=== PATIENT | female | born 1990 | race Hispanic/Latino ===

== ENCOUNTER 2017-07-31 14:41 | Emergency (ER) | payer BC ==
--- NOTE | 2017-07-31 15:00 | EDM.PDOC ---
ED HPI GENERAL MEDICAL PROBLEM - General Chief Complaint: Abdominal Pain Stated Complaint: STOMACH PAINS Time Seen by Provider: 07/31/17 14:57 Source of Information: Reports: Patient History Limitations: Reports: No Limitations - History of Present Illness INITIAL COMMENTS - FREE TEXT/NARRATIVE: HISTORY AND PHYSICAL: []27-year-old obese female presenting with left-sided upper abdominal pain that extends and waves laterally across to the right side History of Present Illness: []Pain awakened patient at 6:00 this morning Patient had bowel movement that was loose at noon One episode of emesis Review of Systems: As per history of present illness and below otherwise all systems reviewed and negative. Past medical history: As per history of present illness and as reviewed below otherwise noncontributory. Surgical history: As per history of present illness and as reviewed below otherwise noncontributory. Social history: No reported history of drug or alcohol abuse. Family history: As per history of present illness and as reviewed below otherwise noncontributory. Physical exam: Alert and oriented female who is good affect skin is warm and dry answering questions appropriately in full sentences without any shortness of breath HEENT: Atraumatic, normocehpalic, pupils reactive, negative for conjunctival pallor or scleral icterus, mucous membranes moist, throat clear, neck supple, nontender, trachea midline. Lungs: Clear to auscultation, breath sounds equal bilaterally, chest non tender. Heart: S1S2, regular, negative for clicks, rubs, or JVD. Abdomen: Soft, nondistended, nontender. No guarding no rebound. No pain at the time of examination "the way of just finished" Negative for masses or hepatossplenmegaly. Negative for costovertebral tenderness. Pelvis: Stable nontender. Genitourinary: Deferred. Rectal: Deferred Extremities: Atraumatic, negative for cords or calf pain. Neurovascular unremarkable. Neuro: Awake, alert, oriented. Cranial nerves II through XII unremarkable. Cerebellum unremarkable. Motor and sensory unremarkable throughout. Exam nonfocal. Diagnostics: [CBC CMP amylase lipase urine culture UA Therapeutics: [Toradol 30 mg IV] Impression: [Mesenteric adenitis] Plan: []Discharged home Ibuprofen as discussed If worsens over the weekend return to ER Follow-up with your primary care next week Definitive disposition and diagnosis as appropriate pending reevaluation and review of above. Onset: Today, Sudden Duration: Hour(s): Left Abdominal Pain Score (Numeric/FACES): 10 - Related Data Allergies Allergy/AdvReac Type Severity Reaction Status Date / Time No Known Allergies Allergy Verified 07/31/17 14:57 Home Meds: Home Meds Levonorgestrel-Ethin Estradiol [Clotilde-28 Tablet] 1 tab PO DAILY 07/31/17 [ History] ED ROS GENERAL - Review of Systems Review Of Systems: ROS reveals no pertinent complaints other than HPI. ED EXAM, GI/ABD - Physical Exam Exam: See Below (See dictation) Course - Vital Signs Last Recorded V/S: Last Vital Signs Temp 36.7 C 07/31/17 17:49 Pulse 90 07/31/17 17:49 Resp 20 07/31/17 17:49 BP 139/88 07/31/17 17:49 Pulse Ox 98 07/31/17 17:49 - Orders/Labs/Meds Orders: Active Orders 24 hr Category Date Time Status Abdomen Pelvis w Cont [CT] Stat Exams 07/31/17 16:41 Taken Chest 1V Frontal [CR] Stat Exams 07/31/17 15:00 Taken CULTURE URINE [RM] Stat Lab 07/31/17 15:07 Received Ketorolac [Toradol] Med 07/31/17 18:27 Once 30 mg IVPUSH ONETIME ONE Labs: Laboratory Tests 07/31/17 07/31/17 07/31/17 Range/Units 15:07 15:07 15:07 WBC (4.0-11.0) K/uL RBC (4.30-5.90) M/uL Hgb (12.0-16.0) g/dL Hct (36.0-46.0) % MCV (80.0-98.0) fL MCH (27.0-32.0) pg MCHC (31.0-37.0) g/dL RDW Std Deviation (28.0-62.0) fl RDW Coeff of Max (11.0-15.0) % Plt Count (150-400) K/uL MPV (7.40-12.00) fL Add Manual Diff Neutrophils % (Manual) (48.0-80.0) % Band Neutrophils % % Lymphocytes % (Manual) (16.0-40.0) % Atypical Lymphs % Monocytes % (Manual) (0.0-15.0) % Nucleated RBC % /100WBC Absolute Seg Neuts (1.4-5.7) Band Neutrophils # Lymphocytes # (Manual) (0.6-2.4) Monocytes # (Manual) (0.0-0.8) Nucleated RBCs # K/uL Sodium (136-146) mmol/L Potassium (3.5-5.1) mmol/L Chloride (98-110) mmol/L Carbon Dioxide (21-31) mmol/L BUN (6.0-23.0) mg/dL Creatinine (0.6-1.5) mg/dL Est Cr Clr Drug Dosing mL/min Estimated GFR (MDRD) ml/min Glucose (60-110) mg/dL Calcium (8.8-10.8) mg/dL Total Bilirubin (0.1-1.5) mg/dL AST (5-40) IU/L ALT (8-54) IU/L Alkaline Phosphatase (40-150) Total Protein (6.0-8.0) g/dL Albumin (3.5-5.0) g/dL Globulin (2.0-3.5) g/dL Albumin/Globulin Ratio (1.3-2.8) Amylase (10-90) U/L Lipase (7-80) U/L Urine Color YELLOW Urine Appearance CLEAR Urine pH 7.0 (5.0-8.0) Ur Specific Volcano 1.020 (1.001-1.035) Urine Protein 100 (NEGATIVE) mg/dL Urine Glucose (UA) NEGATIVE (NEGATIVE) mg/dL Urine Ketones NEGATIVE (NEGATIVE) mg/dL Urine Occult Blood NEGATIVE (NEGATIVE) Urine Nitrite NEGATIVE (NEGATIVE) Urine Bilirubin NEGATIVE (NEGATIVE) Urine Urobilinogen 4.0 H (<2.0) EU/dL Ur Leukocyte Esterase NEGATIVE (NEGATIVE) Urine RBC 0-2 (0-2/HPF) Urine WBC 0-1 (0-5/HPF) Ur Epithelial Cells RARE (NONE-FEW) Urine Bacteria RARE (NEGATIVE) Urine HCG, Qual NEGATIVE (NEGATIVE) Urine Opiates Screen NEGATIVE (NEGATIVE) Ur Oxycodone Screen NEGATIVE (NEGATIVE) Urine Methadone Screen NEGATIVE (NEGATIVE) Ur Barbiturates Screen NEGATIVE (NEGATIVE) Ur Phencyclidine Scrn NEGATIVE (NEGATIVE) Ur Amphetamine Screen NEGATIVE (NEGATIVE) U Methamphetamines Scrn NEGATIVE (NEGATIVE) U Benzodiazepines Scrn NEGATIVE (NEGATIVE) U Cocaine Metab Screen NEGATIVE (NEGATIVE) U Marijuana (THC) Screen NEGATIVE (NEGATIVE) 07/31/17 07/31/17 Range/Units 15:09 15:09 WBC 17.81 H (4.0-11.0) K/uL RBC 6.96 H (4.30-5.90) M/uL Hgb 14.5 (12.0-16.0) g/dL Hct 44.6 (36.0-46.0) % MCV 64.1 L (80.0-98.0) fL MCH 20.8 L (27.0-32.0) pg MCHC 32.5 (31.0-37.0) g/dL RDW Std Deviation 35.3 (28.0-62.0) fl RDW Coeff of Max 17 H (11.0-15.0) % Plt Count 334 (150-400) K/uL MPV 9.80 (7.40-12.00) fL Add Manual Diff YES Neutrophils % (Manual) 73 (48.0-80.0) % Band Neutrophils % 3 % Lymphocytes % (Manual) 17 (16.0-40.0) % Atypical Lymphs % Not Reportable Monocytes % (Manual) 2 (0.0-15.0) % Nucleated RBC % 0.0 /100WBC Absolute Seg Neuts 13.0 H (1.4-5.7) Band Neutrophils # 0.5 Lymphocytes # (Manual) 3.0 H (0.6-2.4) Monocytes # (Manual) 0.4 (0.0-0.8) Nucleated RBCs # 0 K/uL Sodium 134 L (136-146) mmol/L Potassium 4.4 (3.5-5.1) mmol/L Chloride 101 (98-110) mmol/L Carbon Dioxide 24 (21-31) mmol/L BUN 10 (6.0-23.0) mg/dL Creatinine 0.7 (0.6-1.5) mg/dL Est Cr Clr Drug Dosing 90.29 mL/min Estimated GFR (MDRD) > 60.0 ml/min Glucose 154 H (60-110) mg/dL Calcium 9.2 (8.8-10.8) mg/dL Total Bilirubin 0.5 (0.1-1.5) mg/dL AST 23 (5-40) IU/L ALT 23 (8-54) IU/L Alkaline Phosphatase 93 (40-150) Total Protein 8.8 H (6.0-8.0) g/dL Albumin 3.9 (3.5-5.0) g/dL Globulin 4.9 H (2.0-3.5) g/dL Albumin/Globulin Ratio 0.8 L (1.3-2.8) Amylase 66 (10-90) U/L Lipase 20 (7-80) U/L Urine Color Urine Appearance Urine pH (5.0-8.0) Ur Specific Volcano (1.001-1.035) Urine Protein (NEGATIVE) mg/dL Urine Glucose (UA) (NEGATIVE) mg/dL Urine Ketones (NEGATIVE) mg/dL Urine Occult Blood (NEGATIVE) Urine Nitrite (NEGATIVE) Urine Bilirubin (NEGATIVE) Urine Urobilinogen (<2.0) EU/dL Ur Leukocyte Esterase (NEGATIVE) Urine RBC (0-2/HPF) Urine WBC (0-5/HPF) Ur Epithelial Cells (NONE-FEW) Urine Bacteria (NEGATIVE) Urine HCG, Qual (NEGATIVE) Urine Opiates Screen (NEGATIVE) Ur Oxycodone Screen (NEGATIVE) Urine Methadone Screen (NEGATIVE) Ur Barbiturates Screen (NEGATIVE) Ur Phencyclidine Scrn (NEGATIVE) Ur Amphetamine Screen (NEGATIVE) U Methamphetamines Scrn (NEGATIVE) U Benzodiazepines Scrn (NEGATIVE) U Cocaine Metab Screen (NEGATIVE) U Marijuana (THC) Screen (NEGATIVE) Meds: Medications Discontinued Medications Generic Name Dose Route Start Last Admin Trade Name Lamonte PRN Reason Stop Dose Admin Iopamidol 100 ml 07/31/17 17:04 07/31/17 17:05 Isovue Multipack-370 (76%) IVPUSH 07/31/17 17:05 100 ml ONETIME STA Administration Departure - Departure Time of Disposition: 18:28 Disposition: Home, Self-Care 01 Condition: Good Clinical Impression: Mesenteric adenitis Abdominal pain Qualifiers: Abdominal location: generalized Qualified Code(s): R10.84 - Generalized abdominal pain - Discharge Information Instructions: Abdominal Pain, Adult, [id number] Referrals: PCP,None [Primary Care Provider] - Forms: ED Department Discharge Additional Instructions: The following information is given to patients seen in the emergency department who are being discharged to home. This information is to outline your options for follow-up care. We provide all patients seen in our emergency department with a follow-up referral. The need for follow-up, as well as the timing and circumstances, are variable depending upon the specifics of your emergency department visit. If you don't have a primary care physician on staff, we will provide you with a referral. We always advise you to contact your personal physician following an emergency department visit to inform them of the circumstance of the visit and for follow-up with them and/or the need for any referrals to a consulting specialist. The emergency department will also refer you to a specialist when appropriate. This referral assures that you have the opportunity for followup care with a specialist. All of these measure are taken in an effort to provide you with optimal care, which includes your followup. Under all circumstances we always encourage you to contact your private physician who remains a resource for coordinating your care. When calling for followup care, please make the office aware that this follow-up is from your recent emergency room visit. If for any reason you are refused follow-up, please contact the [facility] emergency department at and asked to speak to the emergency department charge nurse. Ibuprofen as discussed for discomfort Heat pack to abdomen as needed Return to the emergency department charge if symptoms were to worsen over the weekend Follow-up with your primary care provider next week - My Orders Last 24 Hours: My Active Orders 07/31/17 15:00 Chest 1V Frontal [CR] Stat 07/31/17 15:07 CULTURE URINE [RM] Stat 07/31/17 16:41 Abdomen Pelvis w Cont [CT] Stat 07/31/17 18:27 Ketorolac [Toradol] 30 mg IVPUSH ONETIME ONE - Assessment/Plan Last 24 Hours: My Active Orders 07/31/17 15:00 Chest 1V Frontal [CR] Stat 07/31/17 15:07 CULTURE URINE [RM] Stat 07/31/17 16:41 Abdomen Pelvis w Cont [CT] Stat 07/31/17 18:27 Ketorolac [Toradol] 30 mg IVPUSH ONETIME ONE
[2017-07-31 15:40] LABS: CHLORIDE,CL 101 mmol/L (98-110); SODIUM,NA 134 mmol/L (136-146)
[2017-07-31] MEDS ORDERED: Iopamidol 755 MG/ML 500 ML Multipack Bottle IVPUSH STA (17:04)
[2017-07-31] MEDS ORDERED: Ketorolac 30 MG/ML SDV IVPUSH ONE (18:27)
--- NOTE | 2017-08-03 14:07 | CR ---
EXAM DATE: 07/31/17 PATIENT'S AGE: 27 Patient: RAFAEL ALFORD Facility: [place], [place] Site . Site : 1990 Study: XRay Chest [id number] 4:59:41 PM Ordering Physician: Doctor Posey Final Report: INDICATION: pain/sob TECHNIQUE: Chest 1 view. COMPARISON: None. FINDINGS: Cardiovascular and mediastinum: Heart size and vasculature are normal in caliber and appearance. Mediastinum is within normal limits. Lungs and pleural space: Lungs are clear. No sign of infiltrate or mass. No sign of pleural effusion. No pneumothorax. Bones and soft tissues: No significant findings. IMPRESSION: Unremarkable chest. Dictated by: Brian Bobby MD @ 07/31/2017 17:47:02 (Electronic Signature) Report Signed by Proxy. ROBERT
--- NOTE | 2017-08-03 14:13 | CT ---
EXAM DATE: 07/31/17 PATIENT'S AGE: 27 Patient: RAFAEL ALFORD Facility: [place], [place] Site . Site : 1990 Study: CT Abdomen/Pelvis [id number] 5:10:21 PM Ordering Physician: Doctor Posey Final Report: INDICATION: ABD PAIN THIS TECHNIQUE: CT abdomen and pelvis acquired with IV contrast. COMPARISON: None FINDINGS: Lower chest: 4 mm nonspecific noncalcified pulmonary nodule within the right lower lobe. Liver: Unremarkable. Spleen: Unremarkable. Pancreas: Unremarkable. Gallbladder and bile ducts: Unremarkable. Kidneys: Subcentimeter focus low attenuated structure within the inferior pole of the left kidney which is too small to accurately characterize by CT. Adrenal glands: Unremarkable. GI tract: Unremarkable. Appendix is normal. Vascular structures: Negative. No sign of aneurysm. Lymph nodes: Prominent nonspecific mesenteric lymph nodes Miscellaneous: Unremarkable. No free air or significant free fluid. Pelvic Organs: Unremarkable. Bones: Unremarkable for age. IMPRESSION: 1. Nonspecific prominent mesenteric lymph nodes. Normal appendix. Findings are nonspecific, but can be seen with mesenteric adenitis. 2. 4 mm nonspecific noncalcified primary nodule within the right lower lobe. Recommend comparison with any prior cross-sectional imaging of the chest to evaluate for stability/chronicity. Dictated by Clint Waller MD @ 07/31/2017 6:16:42 PM Dictated by: Clint Waller MD @ 07/31/2017 18:16:53 (Electronic Signature) Report Signed by Proxy. [facility]ANEL[facility]
== END 2017-07-31 18:37 | disposition home or self-care (01) ==
LOC: MW.ED 14:41 → EDBD 14:41 → MERGE 14:41 → MW.ED 18:37
DX: I88.0 Nonspecific mesenteric lymphadenitis (principal); Z79.899 Other long term (current) drug therapy
CPT/HCPCS: 36415; 71010; 74177; 80053; 80305; 81001; 81025; 82150; 83690; 85025; 87086; 96372; 99284; J1885; Q9967

== ENCOUNTER 2020-01-25 07:39 | Inpatient (IN) | payer BC ==
[~2020-01-25 07:39] MED LIST: Glycopyrrolate 0.2 MG/ML SDV ONE; Lactated Ringers 1,000 ML IV SCH; Lidocaine 2% 5 ML SDV ONE; Midazolam 1 MG/ML 2 ML SDV ONE; Ondansetron 4 MG/2 ML SDV ONE; Propofol 200 MG/20 ML SDV ONE; Rocuronium Bromide 50 MG/5 ML Syringe ONE; Sodium Chloride 0.9% 10 ML SDV IV PRN; Sodium Chloride 0.9% 10 ML Syringe FLUSH PRN; Sodium Chloride 0.9% 2.5 ML Syringe FLUSH PRN; ceFAZolin 2 GM in Premix Bag 1 BAG IV ONE; fentaNYL 250 MCG/5 ML SDV ONE
[2020-01-25] MEDS ORDERED: Bupivacaine 0.5% 30 ML SDV ONE ×2 (08:16→12:40)
--- NOTE | 2020-01-25 08:58 | PCM.PREANE ---
Preanesthetic Assessment - Anesthesia/Transfusion/Family Hx Anesthesia History: No Prior Anesthesia Family History of Anesthesia Reaction: No Transfusion History: Unknown Intubation History: Unknown - Review of Systems General: No Symptoms Pulmonary: No Symptoms Cardiovascular: No Symptoms Gastrointestinal: Abdominal Pain Neurological: No Symptoms Other: Reports: None - Physical Assessment Height: 5 ft 1 in Weight: 112.491 kg ASA Class: 2 Mental Status: Alert & Oriented x3 Airway Class: Mallampati = 1 Dentition: Reports: Implants (x1 upper front) Thyro-Mental Finger Breadths: 3 Mouth Opening Finger Breadths: 3 ROM/Head Extension: Full Lungs: Clear to Auscultation, Normal Respiratory Effort Cardiovascular: Regular Rate, Regular Rhythm - Allergies Allergies/Adverse Reactions: Allergies Allergy/AdvReac Type Severity Reaction Status Date / Time No Known Allergies Allergy Verified 01/22/20 10:01 - Blood Blood Available: No - Anesthesia Plan Pre-Op Medication Ordered: None - Acknowledgements Anesthesia Type Planned: General Anesthesia Pt an Appropriate Candidate for the Planned Anesthesia: Yes Alternatives and Risks of Anesthesia Discussed w Pt/Guardian: Yes Pt/Guardian Understands and Agrees with Anesthesia Plan: Yes PreAnesthesia Questionnaire HEENT History: Reports: Other (See Below) Other HEENT History: wears contacts/glasses Cardiovascular History: Reports: None Respiratory History: Reports: Asthma (mild/moderate) Gastrointestinal History: Reports: Cholelithiasis, Hepatitis, Other (See Below) Other Gastrointestinal History: occasional heartburn, hx hepatitis C-has been treated Genitourinary History: Reports: None [employer] History: Reports: Polycystic Ovaries, (13 weeks at present time, heart tones present this morning) Musculoskeletal History: Reports: None Neurological History: Reports: None Psychiatric History: Reports: None Endocrine/Metabolic History: Reports: Diabetes, Gestational, Obesity/BMI 30+ (BMI 46.9) Hematologic History: Reports: Other (See Below) Other Hematologic History: thalassemia trait Immunologic History: Reports: None Oncologic (Cancer) History: Reports: None Dermatologic History: Reports: None - Past Surgical History Head Surgeries/Procedures: Reports: None HEENT Surgical History: Reports: Oral Surgery Other HEENT Surgeries/Procedures: dental implant x1 upper front Cardiovascular Surgical History: Reports: None Respiratory Surgical History: Reports: None GI Surgical History: Reports: None Female Surgical History: Reports: None Endocrine Surgical History: Reports: None Neurological Surgical History: Reports: None Musculoskeletal Surgical History: Reports: None Oncologic Surgical History: Reports: None Dermatological Surgical History: Reports: None - SUBSTANCE USE Smoking Status *Q: Never Smoker - HOME MEDS Home Medications: Home Meds Albuterol [Proair HFA] 2 puff INH ASDIRECTED PRN 01/22/20 [History] Budesonide [Pulmicort Flexhaler] 1 puff INH BID 01/22/20 [History] Insulin NPH/Insulin Reg,Human [Novolin 70-30] 1 injection SUBCUT BID 01/22/20 [History] Lispro 10 mg PO BID 01/22/20 [History] Pnv No.95/Ferrous Fum/Folic AC [ Vitamin Tablet] 1 tab PO DAILY 01/22/20 [History] - CURRENT (IN HOUSE) MEDS Current Meds: Current Medications Lactated Ringer's (Ringers, Lactated) 1,000 mls @ 125 mls/hr IV ASDIRECTED DAISY Last Admin: 01/25/20 08:52 Dose: 125 mls/hr Documented by: Sodium Chloride (Saline Flush) 10 ml FLUSH ASDIRECTED PRN PRN Reason: Keep Vein Open Sodium Chloride (Saline Flush) 2.5 ml FLUSH ASDIRECTED PRN PRN Reason: Keep Vein Open Sodium Chloride (Normal Saline) 10 ml IV ASDIRECTED PRN PRN Reason: IV Use Discontinued Medications Bupivacaine HCl (Marcaine 0.5%) Confirm Administered Dose 30 ml .ROUTE .STK-MED ONE Stop: 01/25/20 08:17 Fentanyl (Sublimaze) Confirm Administered Dose 250 mcg .ROUTE .STK-MED ONE Stop: 01/25/20 07:16 Glycopyrrolate (Robinul) Confirm Administered Dose 0.4 mg .ROUTE .STK-MED ONE Stop: 01/25/20 07:16 Cefazolin Sodium/Dextrose 2 gm (/ Premix) 50 mls @ 100 mls/hr IV ONETIME ONE Stop: 01/22/20 11:13 Lidocaine (Xylocaine-Mpf 2%) Confirm Administered Dose 5 ml .ROUTE .STK-MED ONE Stop: 01/25/20 07:16 Midazolam HCl (Versed 1 Mg/Ml) Confirm Administered Dose 2 mg .ROUTE .STK-MED ONE Stop: 01/25/20 07:16 Ondansetron HCl (Zofran) Confirm Administered Dose 4 mg .ROUTE .STK-MED ONE Stop: 01/25/20 07:16 Propofol (Diprivan 20 Ml) Confirm Administered Dose 200 mg .ROUTE .STK-MED ONE Stop: 01/25/20 07:16 Rocuronium Livingston (Rocuronium Livingston) Confirm Administered Dose 50 mg .ROUTE .STK-MED ONE Stop: 01/25/20 07:16
[2020-01-25] MEDS ORDERED: Succinylcholine/Sod PF 100 MG/5 ML SYRINGE IV ONE (09:07)
[2020-01-25] MEDS ORDERED: Acetaminophen/oxyCODONE 325-5 MG Tab PO PRN (09:11)
[2020-01-25] MEDS ORDERED: Ondansetron 4 MG Tab PO PRN (09:11)
[2020-01-25] MEDS ORDERED: Sodium Chloride 0.9% 20 ML ONE (09:26)
[2020-01-25] MEDS ORDERED: ceFAZolin 1 GM Vial ONE ×2 (09:26→12:39)
[2020-01-25] MEDS ORDERED: fentaNYL 100 MCG/2 ML SDV ONE ×4 (09:55→13:09)
[2020-01-25] MEDS ORDERED: Rocuronium Bromide 50 MG/5 ML Syringe ONE (10:20)
[2020-01-25] MEDS ORDERED: HYDROmorphone 2 MG/ML Syringe ONE (10:42)
[2020-01-25] MEDS ORDERED: Labetalol 100 MG/20 ML MDV ONE (13:27)
[2020-01-25] MEDS ORDERED: Albuterol 0.083% 2.5 MG/3 ML Neb Soln NEB PRN (13:30)
[2020-01-25] MEDS ORDERED: Atropine 0.1 MG/ML 10 ML Syringe IVPUSH PRN ×2 (13:30)
[2020-01-25] MEDS ORDERED: EPINEPHrine 1:10,000 1 MG/10 ML Syringe IVPUSH PRN (13:30)
[2020-01-25] MEDS ORDERED: Naloxone 0.4 MG/ML Syringe IVPUSH PRN ×2 (13:30→14:00)
[2020-01-25] MEDS ORDERED: 50% Dextrose in Water 50 ML Syringe IVPUSH PRN (13:30)
[2020-01-25] MEDS ORDERED: diphenhydrAMINE 50 MG/ML SDV IVPUSH PRN ×2 (13:45→14:00)
[2020-01-25] MEDS ORDERED: Acetaminophen 325 MG Tab PO PRN (13:45)
--- NOTE | 2020-01-25 13:58 | PCM.OPNOTE ---
- General Post-Op/Procedure Note Date of Surgery/Procedure: 01/25/20 Operative Procedure(s): Laparoscopic converted to open cholecystectomy Findings: Severely inflamed gallbladder with extremely large stone impacted in the proximal half of the gallbladder Pre Op Diagnosis: Symptomatic cholelithiasis Post-Op Diagnosis: Acute cholecystitis Anesthesia Technique: General ET Tube Primary Surgeon: Jannet Shirley Secondary Surgeon: Inderjit Shukla Pathology: gallbladder Fluid Replacement, Intraop: 3,800 Output, Urine Amount: 410 EBL in mLs: 450 Surgical Drain/Tube Type: Arcenio Drain Condition: Good
[2020-01-25] MEDS ORDERED: Ondansetron 4 MG/2 ML SDV IVPUSH PRN (14:00)
[2020-01-25] MEDS ORDERED: diphenhydrAMINE 25 MG Cap PO PRN (14:00)
[2020-01-25] MEDS: fentaNYL 100 MCG/2 ML SDV IVPUSH PRN ×2 (14:30→14:37)
[2020-01-25 14:31] LABS: BLOOD UREA NITROGEN,BUN 6 mg/dL (7.0-18.0); CARBON DIOXIDE,CO2 23.2 mmol/L (21.0-32.0); CHLORIDE,CL 103 mmol/L (98-107); GLUCOSE RANDOM 115 mg/dL (74-106); POTASSIUM,K 3.9 mmol/L (3.5-5.1); SODIUM,NA 136 mmol/L (136-145)
[2020-01-25] MEDS: cefOXitin 2 GM in Premix Bag 1 BAG IV SCH ×3 (15:51→22:11)
[2020-01-25] MEDS: Morphine PF 30 MG/30 ML PCA Vial IV SCH (15:52)
[2020-01-25] MEDS ORDERED: Magnesium Sulfate/Water 4 GM in Premix Bag 1 BAG IV ONE ×2 (15:52→16:00)
--- NOTE | 2020-01-25 15:57 | PCM.POSTAN ---
POST ANESTHESIA ASSESSMENT - MENTAL STATUS Mental Status: Alert, Oriented - VITAL SIGNS Vital Signs: Last Vital Signs Temp 36.7 C 01/25/20 13:43 Pulse 110 H 01/25/20 15:00 Resp 18 01/25/20 15:00 BP 132/87 01/25/20 15:00 Pulse Ox 97 01/25/20 15:00 - RESPIRATORY Respiratory Status: Respiratory Rate WNL, Airway Patent, O2 Saturation Stable - CARDIOVASCULAR CV Status: Pulse Rate WNL, Blood Pressure Stable - GASTROINTESTINAL GI Status: No Symptoms - PAIN Pain Score: 4 - POST OP HYDRATION Hydration Status: Adequate & Stable - OBSERVATIONS Free Text/Narrative:: No anesthesia problems
--- NOTE | 2020-01-25 17:45 | PCM.SURGPN ---
- General Info Date of Service: 01/25/20 Date of Surgery/Procedure: 01/25/20 POD#: 0 Functional Status: Reports: Pain Controlled, Other (Pain well controlled. patient is tachycardic and was preoperative. HR is only about 10 BPM higher than pre-op. She denies nausea. UOP adequate. Baby with HR near the 160s and moving around on US. ) - Review of Systems General: Reports: No Symptoms HEENT: Reports: No Symptoms Pulmonary: Reports: No Symptoms Cardiovascular: Reports: No Symptoms Gastrointestinal: Reports: No Symptoms Genitourinary: Reports: No Symptoms Musculoskeletal: Reports: No Symptoms Skin: Reports: No Symptoms - Patient Data Vitals - Most Recent: Last Vital Signs Temp 36.5 C 01/25/20 15:15 Pulse 119 H 01/25/20 15:15 Resp 18 01/25/20 15:15 BP 126/88 01/25/20 15:15 Pulse Ox 98 01/25/20 15:15 Weight - Most Recent: 112.491 kg I&O - Last 24 Hours: Intake & Output 01/25/20 01/25/20 01/25/20 06:59 14:59 22:59 Intake Total 8200 Output Total 1095 Balance 7105 Lab Results Last 24 Hrs: Laboratory Results - last 24 hr 01/25/20 01/25/20 01/25/20 Range/Units 11:12 13:50 14:00 WBC (4.0-11.0) K/uL RBC (4.30-5.90) M/uL Hgb (12.0-16.0) g/dL Hct (36.0-46.0) % MCV (80.0-98.0) fL MCH (27.0-32.0) pg MCHC (31.0-37.0) g/dL RDW Std Deviation (28.0-62.0) fl RDW Coeff of Max (11.0-15.0) % Plt Count (150-400) K/uL MPV (7.40-12.00) fL Neut % (Auto) (48.0-80.0) % Lymph % (Auto) (16.0-40.0) % [place] % (Auto) (0.0-15.0) % Eos % (Auto) (0.0-7.0) % Baso % (Auto) (0.0-1.5) % Neut # (Auto) (1.4-5.7) K/uL Lymph # (Auto) (0.6-2.4) K/uL [place] # (Auto) (0.0-0.8) K/uL Eos # (Auto) (0.0-0.7) K/uL Baso # (Auto) (0.0-0.1) K/uL Nucleated RBC % /100WBC Nucleated RBCs # K/uL INR 1.03 APTT (18.6-31.3) SEC Lactate (0.20-2.00) mmol/L Sodium (136-145) mmol/L Potassium (3.5-5.1) mmol/L Chloride (98-107) mmol/L Carbon Dioxide (21.0-32.0) mmol/L BUN (7.0-18.0) mg/dL Creatinine (0.6-1.0) mg/dL Est Cr Clr Drug Dosing mL/min Estimated GFR (MDRD) ml/min Glucose (74-106) mg/dL POC Glucose 103 90 (60-110) mg/dL Calcium (8.5-10.1) mg/dL Magnesium (1.8-2.4) mg/dL Total Bilirubin (0.2-1.0) mg/dL AST (15-37) IU/L ALT (14-63) IU/L Alkaline Phosphatase (46-116) U/L Total Protein (6.4-8.2) g/dL Albumin (3.4-5.0) g/dL Globulin (2.6-4.0) g/dL Albumin/Globulin Ratio (0.9-1.6) 01/25/20 01/25/20 01/25/20 Range/Units 14:00 14:00 14:00 WBC 16.11 H (4.0-11.0) K/uL RBC 6.07 H (4.30-5.90) M/uL Hgb 12.2 (12.0-16.0) g/dL Hct 37.9 (36.0-46.0) % MCV 62.4 L (80.0-98.0) fL MCH 20.1 L (27.0-32.0) pg MCHC 32.2 (31.0-37.0) g/dL RDW Std Deviation 36.3 (28.0-62.0) fl RDW Coeff of Max 16 H (11.0-15.0) % Plt Count 238 (150-400) K/uL MPV 10.00 (7.40-12.00) fL Neut % (Auto) 76.9 (48.0-80.0) % Lymph % (Auto) 15.6 L (16.0-40.0) % [place] % (Auto) 5.4 (0.0-15.0) % Eos % (Auto) 2.0 (0.0-7.0) % Baso % (Auto) 0.1 (0.0-1.5) % Neut # (Auto) 12.4 H (1.4-5.7) K/uL Lymph # (Auto) 2.5 H (0.6-2.4) K/uL [place] # (Auto) 0.9 H (0.0-0.8) K/uL Eos # (Auto) 0.3 (0.0-0.7) K/uL Baso # (Auto) 0.0 (0.0-0.1) K/uL Nucleated RBC % 0.0 /100WBC Nucleated RBCs # 0 K/uL INR APTT (18.6-31.3) SEC Lactate 1.5 (0.20-2.00) mmol/L Sodium 136 (136-145) mmol/L Potassium 3.9 (3.5-5.1) mmol/L Chloride 103 (98-107) mmol/L Carbon Dioxide 23.2 (21.0-32.0) mmol/L BUN 6 L (7.0-18.0) mg/dL Creatinine 0.5 L (0.6-1.0) mg/dL Est Cr Clr Drug Dosing 124.15 mL/min Estimated GFR (MDRD) > 60.0 ml/min Glucose 115 H (74-106) mg/dL POC Glucose (60-110) mg/dL Calcium 7.8 L (8.5-10.1) mg/dL Magnesium 1.3 L (1.8-2.4) mg/dL Total Bilirubin 0.3 (0.2-1.0) mg/dL AST 93 H (15-37) IU/L ALT 82 H (14-63) IU/L Alkaline Phosphatase 73 (46-116) U/L Total Protein 6.6 (6.4-8.2) g/dL Albumin 2.5 L (3.4-5.0) g/dL Globulin 4.1 H (2.6-4.0) g/dL Albumin/Globulin Ratio 0.6 L (0.9-1.6) 01/25/20 01/25/20 Range/Units 14:00 17:07 WBC (4.0-11.0) K/uL RBC (4.30-5.90) M/uL Hgb (12.0-16.0) g/dL Hct (36.0-46.0) % MCV (80.0-98.0) fL MCH (27.0-32.0) pg MCHC (31.0-37.0) g/dL RDW Std Deviation (28.0-62.0) fl RDW Coeff of Max (11.0-15.0) % Plt Count (150-400) K/uL MPV (7.40-12.00) fL Neut % (Auto) (48.0-80.0) % Lymph % (Auto) (16.0-40.0) % [place] % (Auto) (0.0-15.0) % Eos % (Auto) (0.0-7.0) % Baso % (Auto) (0.0-1.5) % Neut # (Auto) (1.4-5.7) K/uL Lymph # (Auto) (0.6-2.4) K/uL [place] # (Auto) (0.0-0.8) K/uL Eos # (Auto) (0.0-0.7) K/uL Baso # (Auto) (0.0-0.1) K/uL Nucleated RBC % /100WBC Nucleated RBCs # K/uL INR APTT 26.4 (18.6-31.3) SEC Lactate (0.20-2.00) mmol/L Sodium (136-145) mmol/L Potassium (3.5-5.1) mmol/L Chloride (98-107) mmol/L Carbon Dioxide (21.0-32.0) mmol/L BUN (7.0-18.0) mg/dL Creatinine (0.6-1.0) mg/dL Est Cr Clr Drug Dosing mL/min Estimated GFR (MDRD) ml/min Glucose (74-106) mg/dL POC Glucose 125 H (60-110) mg/dL Calcium (8.5-10.1) mg/dL Magnesium (1.8-2.4) mg/dL Total Bilirubin (0.2-1.0) mg/dL AST (15-37) IU/L ALT (14-63) IU/L Alkaline Phosphatase (46-116) U/L Total Protein (6.4-8.2) g/dL Albumin (3.4-5.0) g/dL Globulin (2.6-4.0) g/dL Albumin/Globulin Ratio (0.9-1.6) Med Orders - Current: Current Medications Acetaminophen (Tylenol) 650 mg PO Q6H PRN PRN Reason: Pain (mild 1-3) Albuterol (Proventil Neb Soln) 2.5 mg NEB ONETIME PRN PRN Reason: Wheezing Atropine Sulfate (Atropine 0.1 Mg/Ml) 0.5 mg IVPUSH ASDIRECTED PRN PRN Reason: Hypo-perfusion Atropine Sulfate (Atropine 0.1 Mg/Ml) 1 mg IVPUSH ASDIRECTED PRN PRN Reason: Hypo-Perfusion Dextrose/Water (Dextrose 50% In Water) 50 ml IVPUSH ASDIRECTED PRN PRN Reason: Hypoglycemia Diphenhydramine HCl (Benadryl) 25 mg IVPUSH Q4H PRN PRN Reason: Itching Diphenhydramine HCl (Benadryl) 25 mg IVPUSH Q6H PRN PRN Reason: Itching Diphenhydramine HCl (Benadryl) 25 mg PO Q6H PRN PRN Reason: Itching Epinephrine HCl (Epinephrine 1:10,000) 1 mg IVPUSH ASDIRECTED PRN PRN Reason: ACLS Guidelines Fentanyl (Sublimaze) 50 - 100 mcg IVPUSH Q5M PRN PRN Reason: Pain Last Admin: 01/25/20 14:37 Dose: 50 mcg Documented by: Lactated Ringer's (Ringers, Lactated) 1,000 mls @ 125 mls/hr IV ASDIRECTED [facility] Last Admin: 01/25/20 08:52 Dose: 125 mls/hr Documented by: Lactated Ringer's (Ringers, Lactated) 1,000 mls @ 150 mls/hr IV ASDIRECTED [facility] Cefoxitin Sodium 2 gm/ Premix 50 mls @ 100 mls/hr IV Q6H [facility] Last Admin: 01/25/20 15:51 Dose: 100 mls/hr Documented by: Magnesium Sulfate 4 gm/ Premix 100 mls @ 33.333 mls/hr IV ONETIME ONE Stop: 01/25/20 18:59 Insulin Aspart (Novolog) 0 unit SUBCUT ACBREAKFASTANDBED [facility]; Protocol Morphine Sulfate (Morphine Runner Out 30 Mg In 30 Ml) 0 mg IV ASDIRECTED [facility]; Protocol Last Admin: 01/25/20 15:52 Dose: 30 mg Documented by: Naloxone HCl (Narcan) 0.1 mg IVPUSH ASDIRECTED PRN PRN Reason: Respiratory Depression Naloxone HCl (Narcan) 0.04 mg IVPUSH Q3M PRN PRN Reason: Respiratory Depression Ondansetron HCl (Zofran) 4 mg PO Q6H PRN PRN Reason: Nausea/Vomiting Ondansetron HCl (Zofran) 4 mg IVPUSH Q6H PRN PRN Reason: Nausea/Vomiting Sodium Chloride (Saline Flush) 10 ml FLUSH ASDIRECTED PRN PRN Reason: Keep Vein Open Sodium Chloride (Saline Flush) 2.5 ml FLUSH ASDIRECTED PRN PRN Reason: Keep Vein Open Sodium Chloride (Normal Saline) 10 ml IV ASDIRECTED PRN PRN Reason: IV Use Discontinued Medications Bupivacaine HCl (Marcaine 0.5%) Confirm Administered Dose 30 ml .ROUTE .STK-MED ONE Stop: 01/25/20 08:17 Bupivacaine HCl (Marcaine 0.5%) Confirm Administered Dose 120 ml .ROUTE .STK-MED ONE Stop: 01/25/20 12:41 Cefazolin Sodium (Ancef) Confirm Administered Dose 2 gm .ROUTE .STK-MED ONE Stop: 01/25/20 09:27 Cefazolin Sodium (Ancef) Confirm Administered Dose 1 gm .ROUTE .STK-MED ONE Stop: 01/25/20 12:40 Fentanyl (Sublimaze) Confirm Administered Dose 250 mcg .ROUTE .STK-MED ONE Stop: 01/25/20 07:16 Fentanyl (Sublimaze) Confirm Administered Dose 100 mcg .ROUTE .STK-MED ONE Stop: 01/25/20 09:56 Fentanyl (Sublimaze) Confirm Administered Dose 100 mcg .ROUTE .STK-MED ONE Stop: 01/25/20 10:43 Fentanyl (Sublimaze) Confirm Administered Dose 100 mcg .ROUTE .STK-MED ONE Stop: 01/25/20 11:44 Fentanyl (Sublimaze) Confirm Administered Dose 100 mcg .ROUTE .STK-MED ONE Stop: 01/25/20 13:10 Glycopyrrolate (Robinul) Confirm Administered Dose 0.4 mg .ROUTE .STK-MED ONE Stop: 01/25/20 07:16 Hydromorphone HCl (Dilaudid) Confirm Administered Dose 2 mg .ROUTE .STK-MED ONE Stop: 01/25/20 10:43 Cefazolin Sodium/Dextrose 2 gm (/ Premix) 50 mls @ 100 mls/hr IV ONETIME ONE Stop: 01/22/20 11:13 Sodium Chloride (Normal Saline) Confirm Administered Dose 20 mls @ as directed .ROUTE .STK-MED ONE Stop: 01/25/20 09:27 Magnesium Sulfate 4 gm/ Premix 100 mls @ 50 mls/hr IV ONETIME ONE Stop: 01/25/20 17:51 Labetalol HCl (Normodyne) Confirm Administered Dose 100 mg .ROUTE .STK-MED ONE Stop: 01/25/20 13:28 Lidocaine (Xylocaine-Mpf 2%) Confirm Administered Dose 5 ml .ROUTE .STK-MED ONE Stop: 01/25/20 07:16 Midazolam HCl (Versed 1 Mg/Ml) Confirm Administered Dose 2 mg .ROUTE .STK-MED ONE Stop: 01/25/20 07:16 Ondansetron HCl (Zofran) Confirm Administered Dose 4 mg .ROUTE .STK-MED ONE Stop: 01/25/20 07:16 Oxycodone/Acetaminophen (Percocet 325-5 Mg) 2 tab PO Q4H PRN PRN Reason: Pain (severe 7-10) Propofol (Diprivan 20 Ml) Confirm Administered Dose 200 mg .ROUTE .STK-MED ONE Stop: 01/25/20 07:16 Rocuronium [place] (Rocuronium [place]) Confirm Administered Dose 50 mg .ROUTE .STK-MED ONE Stop: 01/25/20 07:16 Rocuronium [place] (Rocuronium [place]) Confirm Administered Dose 50 mg .ROUTE .STK-MED ONE Stop: 01/25/20 10:21 - Exam Wound/Incisions: Dressing Dry and Intact, Other (Drain with serosanguinous drainage. ) General: Alert, Oriented HEENT: Pupils Equal, Pupils Reactive Lungs: Clear to Auscultation, Normal Respiratory Effort Cardiovascular: Regular Rate, Regular Rhythm GI/Abdominal Exam: Soft, Non-Tender, No Distention Extremities: Normal Inspection Skin: Warm, Dry, Intact Neurological: No New Focal Deficit Psy/Mental Status: Alert, Normal Affect, Normal Mood Sepsis Event Note - Focused Exam Vital Signs: Vital Signs Temp Pulse Resp BP Pulse Ox 01/25/20 15:15 36.5 C 119 H 18 126/88 98 01/25/20 15:00 110 H 18 132/87 97 01/25/20 14:53 111 H 22 H 143/80 H 97 01/25/20 14:49 119 H 22 H 136/93 H 97 01/25/20 14:43 119 H 19 137/95 H 97 01/25/20 14:38 113 H 16 140/96 H 95 01/25/20 14:34 109 H 18 140/97 H 96 01/25/20 14:28 107 H 17 141/96 H 95 01/25/20 14:23 111 H 20 143/94 H 95 01/25/20 14:19 114 H 26 H 135/93 H 92 L 01/25/20 14:13 114 H 20 139/93 H 96 01/25/20 14:08 113 H 18 139/98 H 95 01/25/20 14:04 114 H 22 H 144/94 H 95 01/25/20 13:58 114 H 20 142/92 H 96 01/25/20 13:53 116 H 20 145/96 H 96 01/25/20 13:48 117 H 20 157/86 H 97 01/25/20 13:43 36.7 C 122 H 20 147/81 H 97 01/25/20 08:00 36.4 C 114 H 16 150/88 H 98 Date Exam was Performed: 01/25/20 Time Exam was Performed: 17:38 - Problem List & Annotations (1) Acute cholecystitis due to biliary calculus SNOMED Code(s): 99732807205158 Code(s): K80.00 - CALCULUS OF GALLBLADDER W ACUTE CHOLECYST W/O OBSTRUCTION Status: Acute Current Visit: Yes - Problem List Review Problem List Initiated/Reviewed/Updated: Yes - My Orders Last 24 Hours: Active Orders 24 hr Category Date Time Status Patient Status [ADT] Routine ADT 01/25/20 13:45 Active Blood Glucose Check, Bedside [RC] PRN Care 01/25/20 13:30 Active Blood Glucose Check, Bedside [RC] QIDACANDBED Care 01/25/20 13:45 Active Cardiac Monitoring [RC] . DIRECTED Care 01/25/20 13:45 Active Communication Order [RC] PER UNIT ROUTINE Care 01/25/20 14:01 Active Intake and Output [RC] Q4HR Care 01/25/20 13:46 Active Notify Provider Vital Signs [RC] ASDIRECTED Care 01/25/20 13:30 Active Oxygen Therapy [RC] PRN Care 01/25/20 13:30 Active Oxygen Therapy [RC] PRN Care 01/25/20 13:45 Active ROLL TUBE SETTER Record [RC] Q4H Care 01/25/20 14:01 Active Pulse Oximetry [RC] CONTINUOUS Care 01/25/20 13:46 Active RT Aerosol Therapy [RC] ASDIRECTED Care 01/25/20 13:30 Active RT Aerosol Therapy [RC] ASDIRECTED Care 01/25/20 13:30 Active RT Aerosol Therapy [RC] ASDIRECTED Care 01/25/20 13:30 Active RT Incentive Spirometry [RC] Q1HWA Care 01/25/20 13:45 Active Up With Assistance [RC] ASDIRECTED Care 01/25/20 13:45 Active Urinary Catheter Assessment [RC] ASDIRECTED Care 01/25/20 13:45 Active Vital Signs [RC] PER UNIT ROUTINE Care 01/25/20 13:45 Active Vital Signs [RC] PER UNIT ROUTINE Care 01/25/20 14:01 Active Vital Signs [RC] Q5M Care 01/25/20 13:30 Active Wound Care [RC] DAILY Care 01/25/20 13:45 Active Clear Liquid Diet [DIET] Diet 01/26/20 Breakfast Ordered Nothing Per Oral Diet [DIET] Diet 01/25/20 Lunch Active Acetaminophen [Tylenol] Med 01/25/20 13:45 Active 650 mg PO Q6H PRN Albuterol [Proventil Neb Soln] Med 01/25/20 13:30 Active 2.5 mg NEB ONETIME PRN Atropine [Atropine 0.1 MG/ML] Med 01/25/20 13:30 Active 0.5 mg IVPUSH ASDIRECTED PRN Atropine [Atropine 0.1 MG/ML] Med 01/25/20 13:30 Active 1 mg IVPUSH ASDIRECTED PRN Dextrose 50% in Water Med 01/25/20 13:30 Active 50 ml IVPUSH ASDIRECTED PRN EPINEPHrine [EPINEPHrine 1:10,000] Med 01/25/20 13:30 Active 1 mg IVPUSH ASDIRECTED PRN Insulin Aspart [NovoLOG] Med 01/25/20 21:00 Ordered See Protocol SUBCUT ACBREAKFASTANDBED Lactated Ringers [Ringers, Lactated] 1,000 ml Med 01/25/20 13:45 Active IV ASDIRECTED Magnesium Sulfate/Water [Magnesium Sulfate in Water Med 01/25/20 16:00 Active Premix] 4 gm Premix Bag 1 bag IV ONETIME Morphine PF [Morphine ROLL TUBE SETTER 30 MG in 30 ML] Med 01/25/20 14:00 Active See Protocol IV ASDIRECTED Naloxone [Narcan] Med 01/25/20 14:00 Active 0.04 mg IVPUSH Q3M PRN Naloxone [Narcan] Med 01/25/20 13:30 Active 0.1 mg IVPUSH ASDIRECTED PRN Ondansetron [Zofran] Med 01/25/20 14:00 Active 4 mg IVPUSH Q6H PRN Ondansetron [Zofran] Med 01/25/20 09:11 Active 4 mg PO Q6H PRN cefOXitin [Mefoxin in Dextrose,Iso-Osm 2 GM/50 ML] 2 gm Med 01/25/20 13:45 Active Premix Bag 1 bag IV Q6H diphenhydrAMINE [Benadryl] Med 01/25/20 13:45 Active 25 mg IVPUSH Q4H PRN diphenhydrAMINE [Benadryl] Med 01/25/20 14:00 Active 25 mg IVPUSH Q6H PRN diphenhydrAMINE [Benadryl] Med 01/25/20 14:00 Active 25 mg PO Q6H PRN fentaNYL [Sublimaze] Med 01/25/20 13:30 Active 50 - 100 mcg IVPUSH Q5M PRN Abdominal Binder [OM.PC] Per Unit Routine Ot 01/25/20 13:46 Ordered Pulse Oximetry Continuous Monitoring [OM.PC] Routine Oth 01/25/20 14:01 Ordered SCD [Sequential Compression Device] [OM.PC] Routine Oth 01/25/20 13:51 Ordered Medication Orders Acetaminophen (Tylenol) 650 mg PO Q6H PRN PRN Reason: Pain (mild 1-3) Albuterol (Proventil Neb Soln) 2.5 mg NEB ONETIME PRN PRN Reason: Wheezing Atropine Sulfate (Atropine 0.1 Mg/Ml) 0.5 mg IVPUSH ASDIRECTED PRN PRN Reason: Hypo-perfusion Atropine Sulfate (Atropine 0.1 Mg/Ml) 1 mg IVPUSH ASDIRECTED PRN PRN Reason: Hypo-Perfusion Dextrose/Water (Dextrose 50% In Water) 50 ml IVPUSH ASDIRECTED PRN PRN Reason: Hypoglycemia Diphenhydramine HCl (Benadryl) 25 mg IVPUSH Q4H PRN PRN Reason: Itching Diphenhydramine HCl (Benadryl) 25 mg IVPUSH Q6H PRN PRN Reason: Itching Diphenhydramine HCl (Benadryl) 25 mg PO Q6H PRN PRN Reason: Itching Epinephrine HCl (Epinephrine 1:10,000) 1 mg IVPUSH ASDIRECTED PRN PRN Reason: ACLS Guidelines Fentanyl (Sublimaze) 50 - 100 mcg IVPUSH Q5M PRN PRN Reason: Pain Last Admin: 01/25/20 14:37 Dose: 50 mcg Documented by: Admin: 01/25/20 14:30 Dose: 50 mcg Documented by: HANANE Lactated Ringer's (Ringers, Lactated) 1,000 mls @ 125 mls/hr IV ASDIRECTED [facility] Last Admin: 01/25/20 08:52 Dose: 125 mls/hr Documented by: DANIEL Lactated Ringer's (Ringers, Lactated) 1,000 mls @ 150 mls/hr IV ASDIRECTED [facility] Cefoxitin Sodium 2 gm/ Premix 50 mls @ 100 mls/hr IV Q6H [facility] Last Admin: 01/25/20 15:51 Dose: 100 mls/hr Documented by: AMY Magnesium Sulfate 4 gm/ Premix 100 mls @ 33.333 mls/hr IV ONETIME ONE Stop: 01/25/20 18:59 Insulin Aspart (Novolog) 0 unit SUBCUT ACBREAKFASTANDBED [facility]; Protocol Morphine Sulfate (Morphine Runner Out 30 Mg In 30 Ml) 0 mg IV ASDIRECTED [facility]; Protocol Last Admin: 01/25/20 15:52 Dose: 30 mg Documented by: AMY Cosigned by: CARNSAN Naloxone HCl (Narcan) 0.1 mg IVPUSH ASDIRECTED PRN PRN Reason: Respiratory Depression Naloxone HCl (Narcan) 0.04 mg IVPUSH Q3M PRN PRN Reason: Respiratory Depression Ondansetron HCl (Zofran) 4 mg PO Q6H PRN PRN Reason: Nausea/Vomiting Ondansetron HCl (Zofran) 4 mg IVPUSH Q6H PRN PRN Reason: Nausea/Vomiting Sodium Chloride (Saline Flush) 10 ml FLUSH ASDIRECTED PRN PRN Reason: Keep Vein Open Sodium Chloride (Saline Flush) 2.5 ml FLUSH ASDIRECTED PRN PRN Reason: Keep Vein Open Sodium Chloride (Normal Saline) 10 ml IV ASDIRECTED PRN PRN Reason: IV Use - Plan Plan (Free Text/Narrative):: There was no output from NG. Patient was not nauseated. There was no residual so I pulled this out. Patient tolerated clear liquids. Pain: IV MS ROLL TUBE SETTER. Tylenol po prn CV: Tachycardic, but sinus. Will continue to monitor. Pulm: On 2L NC. Sats in high 90s. Watch for signs overnight of sleep apnea. GI: Clear liquids. Renal: Hypomagnesemic. IV mag 4mg ordered. BUN/Cr were normal on labs. UOP clear and adequate. Continue IV LR @125ml/hr ID: IV cefoxin 2gm q 6hr since gallbladder was entered during case. WBC eelvated but likely due to stress from surgery and . Heme: Heme 12. Plts WNL. Drain with no bloody output. Recheck in am Px: SCDs
[2020-01-25] MEDS: Lactated Ringers 1,000 ML IV SCH (20:05)
[2020-01-25] MEDS: Insulin Aspart 100 Units/ML 3 ML Pen SUBCUT SCH (22:08)
[2020-01-26] MEDS: Lactated Ringers 1,000 ML IV SCH ×3 (02:35→16:08)
[2020-01-26] MEDS: Morphine PF 30 MG/30 ML PCA Vial IV SCH (03:46)
[2020-01-26] MEDS: cefOXitin 2 GM in Premix Bag 1 BAG IV SCH ×4 (03:58→21:38)
[2020-01-26] MEDS: Insulin Aspart 100 Units/ML 3 ML Pen SUBCUT SCH ×2 (06:43→22:22)
[2020-01-26 06:44] LABS: BLOOD UREA NITROGEN,BUN 4 mg/dL (7.0-18.0); CARBON DIOXIDE,CO2 27.1 mmol/L (21.0-32.0); CHLORIDE,CL 100 mmol/L (98-107); GLUCOSE RANDOM 121 mg/dL (74-106); POTASSIUM,K 4.2 mmol/L (3.5-5.1); SODIUM,NA 133 mmol/L (136-145)
--- NOTE | 2020-01-26 07:40 | PCM48HPAN ---
Post Anesthesia Note - EVALUATION WITHIN 48HRS OF ANESTHETIC Vital Signs in Normal Range: Yes Patient Participated in Evaluation: Yes Respiratory Function Stable: Yes Airway Patent: Yes (1-2 LPM via NC during the night) Cardiovascular Function Stable: Yes Hydration Status Stable: Yes Pain Control Satisfactory: Yes (CHANNEL LAYER, well controlled) Nausea and Vomiting Control Satisfactory: Yes Mental Status Recovered: Yes Vital Signs: Last Vital Signs Temp 97.7 F 01/26/20 04:00 Pulse 119 H 01/25/20 15:15 Resp 26 H 01/26/20 07:00 BP 109/71 01/26/20 07:00 Pulse Ox 95 01/26/20 07:00
--- NOTE | 2020-01-26 07:44 | PCM48HPAN ---
Post Anesthesia Note - EVALUATION WITHIN 48HRS OF ANESTHETIC Vital Signs in Normal Range: Yes Patient Participated in Evaluation: Yes Respiratory Function Stable: Yes Airway Patent: Yes Cardiovascular Function Stable: Yes Hydration Status Stable: Yes Pain Control Satisfactory: Yes Nausea and Vomiting Control Satisfactory: Yes Mental Status Recovered: Yes Vital Signs: Last Vital Signs Temp 36.5 C 01/26/20 04:00 Pulse 119 H 01/25/20 15:15 Resp 26 H 01/26/20 07:00 BP 109/71 01/26/20 07:00 Pulse Ox 95 01/26/20 07:00
[2020-01-26] MEDS: Multivitamin Tab PO SCH (08:56)
[2020-01-26] MEDS ORDERED: Magnesium Sulfate/Water 2 GM in Premix Bag 1 BAG IV ONE (11:26)
--- NOTE | 2020-01-26 11:26 | PCM.SURGPN ---
- General Info Date of Service: 01/26/20 Date of Surgery/Procedure: 01/25/20 POD#: 1 Functional Status: Reports: Pain Controlled, Tolerating Diet, Ambulating, Urinating - Review of Systems General: Reports: No Symptoms HEENT: Reports: No Symptoms Pulmonary: Reports: No Symptoms Cardiovascular: Reports: No Symptoms Gastrointestinal: Reports: Abdominal Pain (along RUQ with movement, coughing and deep breathing. ). Denies: Flatus Genitourinary: Reports: No Symptoms Musculoskeletal: Reports: No Symptoms Skin: Reports: No Symptoms Neurological: Reports: No Symptoms - Patient Data Vitals - Most Recent: Last Vital Signs Temp 36.5 C 01/26/20 04:00 Pulse 119 H 01/25/20 15:15 Resp 26 H 01/26/20 07:00 BP 109/71 01/26/20 07:00 Pulse Ox 95 01/26/20 07:00 Weight - Most Recent: 117.679 kg I&O - Last 24 Hours: Intake & Output 01/25/20 01/26/20 01/26/20 22:59 06:59 14:59 Intake Total 120 2550 Output Total 701 330 Balance -581 2220 Lab Results Last 24 Hrs: Laboratory Results - last 24 hr 01/25/20 01/25/20 01/25/20 Range/Units 13:50 14:00 14:00 WBC (4.0-11.0) K/uL RBC (4.30-5.90) M/uL Hgb (12.0-16.0) g/dL Hct (36.0-46.0) % MCV (80.0-98.0) fL MCH (27.0-32.0) pg MCHC (31.0-37.0) g/dL RDW Std Deviation (28.0-62.0) fl RDW Coeff of Max (11.0-15.0) % Plt Count (150-400) K/uL MPV (7.40-12.00) fL Neut % (Auto) (48.0-80.0) % Lymph % (Auto) (16.0-40.0) % [place] % (Auto) (0.0-15.0) % Eos % (Auto) (0.0-7.0) % Baso % (Auto) (0.0-1.5) % Neut # (Auto) (1.4-5.7) K/uL Lymph # (Auto) (0.6-2.4) K/uL [place] # (Auto) (0.0-0.8) K/uL Eos # (Auto) (0.0-0.7) K/uL Baso # (Auto) (0.0-0.1) K/uL Nucleated RBC % /100WBC Nucleated RBCs # K/uL INR 1.03 APTT (18.6-31.3) SEC Lactate (0.20-2.00) mmol/L Sodium 136 (136-145) mmol/L Potassium 3.9 (3.5-5.1) mmol/L Chloride 103 (98-107) mmol/L Carbon Dioxide 23.2 (21.0-32.0) mmol/L BUN 6 L (7.0-18.0) mg/dL Creatinine 0.5 L (0.6-1.0) mg/dL Est Cr Clr Drug Dosing 124.15 mL/min Estimated GFR (MDRD) > 60.0 ml/min Glucose 115 H (74-106) mg/dL POC Glucose 90 (60-110) mg/dL Calcium 7.8 L (8.5-10.1) mg/dL Magnesium 1.3 L (1.8-2.4) mg/dL Total Bilirubin 0.3 (0.2-1.0) mg/dL AST 93 H (15-37) IU/L ALT 82 H (14-63) IU/L Alkaline Phosphatase 73 (46-116) U/L Total Protein 6.6 (6.4-8.2) g/dL Albumin 2.5 L (3.4-5.0) g/dL Globulin 4.1 H (2.6-4.0) g/dL Albumin/Globulin Ratio 0.6 L (0.9-1.6) 01/25/20 01/25/20 01/25/20 Range/Units 14:00 14:00 14:00 WBC 16.11 H (4.0-11.0) K/uL RBC 6.07 H (4.30-5.90) M/uL Hgb 12.2 (12.0-16.0) g/dL Hct 37.9 (36.0-46.0) % MCV 62.4 L (80.0-98.0) fL MCH 20.1 L (27.0-32.0) pg MCHC 32.2 (31.0-37.0) g/dL RDW Std Deviation 36.3 (28.0-62.0) fl RDW Coeff of Max 16 H (11.0-15.0) % Plt Count 238 (150-400) K/uL MPV 10.00 (7.40-12.00) fL Neut % (Auto) 76.9 (48.0-80.0) % Lymph % (Auto) 15.6 L (16.0-40.0) % [place] % (Auto) 5.4 (0.0-15.0) % Eos % (Auto) 2.0 (0.0-7.0) % Baso % (Auto) 0.1 (0.0-1.5) % Neut # (Auto) 12.4 H (1.4-5.7) K/uL Lymph # (Auto) 2.5 H (0.6-2.4) K/uL [place] # (Auto) 0.9 H (0.0-0.8) K/uL Eos # (Auto) 0.3 (0.0-0.7) K/uL Baso # (Auto) 0.0 (0.0-0.1) K/uL Nucleated RBC % 0.0 /100WBC Nucleated RBCs # 0 K/uL INR APTT 26.4 (18.6-31.3) SEC Lactate 1.5 (0.20-2.00) mmol/L Sodium (136-145) mmol/L Potassium (3.5-5.1) mmol/L Chloride (98-107) mmol/L Carbon Dioxide (21.0-32.0) mmol/L BUN (7.0-18.0) mg/dL Creatinine (0.6-1.0) mg/dL Est Cr Clr Drug Dosing mL/min Estimated GFR (MDRD) ml/min Glucose (74-106) mg/dL POC Glucose (60-110) mg/dL Calcium (8.5-10.1) mg/dL Magnesium (1.8-2.4) mg/dL Total Bilirubin (0.2-1.0) mg/dL AST (15-37) IU/L ALT (14-63) IU/L Alkaline Phosphatase (46-116) U/L Total Protein (6.4-8.2) g/dL Albumin (3.4-5.0) g/dL Globulin (2.6-4.0) g/dL Albumin/Globulin Ratio (0.9-1.6) 01/25/20 01/25/20 01/26/20 Range/Units 17:07 22:08 06:10 WBC 12.12 H (4.0-11.0) K/uL RBC 5.46 (4.30-5.90) M/uL Hgb 10.7 L (12.0-16.0) g/dL Hct 34.3 L (36.0-46.0) % MCV 62.8 L (80.0-98.0) fL MCH 19.6 L (27.0-32.0) pg MCHC 31.2 (31.0-37.0) g/dL RDW Std Deviation 36.8 (28.0-62.0) fl RDW Coeff of Max 16 H (11.0-15.0) % Plt Count 245 (150-400) K/uL MPV 9.70 (7.40-12.00) fL Neut % (Auto) (48.0-80.0) % Lymph % (Auto) (16.0-40.0) % [place] % (Auto) (0.0-15.0) % Eos % (Auto) (0.0-7.0) % Baso % (Auto) (0.0-1.5) % Neut # (Auto) (1.4-5.7) K/uL Lymph # (Auto) (0.6-2.4) K/uL [place] # (Auto) (0.0-0.8) K/uL Eos # (Auto) (0.0-0.7) K/uL Baso # (Auto) (0.0-0.1) K/uL Nucleated RBC % 0.0 /100WBC Nucleated RBCs # 0 K/uL INR APTT (18.6-31.3) SEC Lactate (0.20-2.00) mmol/L Sodium (136-145) mmol/L Potassium (3.5-5.1) mmol/L Chloride (98-107) mmol/L Carbon Dioxide (21.0-32.0) mmol/L BUN (7.0-18.0) mg/dL Creatinine (0.6-1.0) mg/dL Est Cr Clr Drug Dosing mL/min Estimated GFR (MDRD) ml/min Glucose (74-106) mg/dL POC Glucose 125 H 121 H (60-110) mg/dL Calcium (8.5-10.1) mg/dL Magnesium (1.8-2.4) mg/dL Total Bilirubin (0.2-1.0) mg/dL AST (15-37) IU/L ALT (14-63) IU/L Alkaline Phosphatase (46-116) U/L Total Protein (6.4-8.2) g/dL Albumin (3.4-5.0) g/dL Globulin (2.6-4.0) g/dL Albumin/Globulin Ratio (0.9-1.6) 01/26/20 01/26/20 01/26/20 Range/Units 06:10 06:13 09:22 WBC (4.0-11.0) K/uL RBC (4.30-5.90) M/uL Hgb (12.0-16.0) g/dL Hct (36.0-46.0) % MCV (80.0-98.0) fL MCH (27.0-32.0) pg MCHC (31.0-37.0) g/dL RDW Std Deviation (28.0-62.0) fl RDW Coeff of Max (11.0-15.0) % Plt Count (150-400) K/uL MPV (7.40-12.00) fL Neut % (Auto) (48.0-80.0) % Lymph % (Auto) (16.0-40.0) % [place] % (Auto) (0.0-15.0) % Eos % (Auto) (0.0-7.0) % Baso % (Auto) (0.0-1.5) % Neut # (Auto) (1.4-5.7) K/uL Lymph # (Auto) (0.6-2.4) K/uL [place] # (Auto) (0.0-0.8) K/uL Eos # (Auto) (0.0-0.7) K/uL Baso # (Auto) (0.0-0.1) K/uL Nucleated RBC % /100WBC Nucleated RBCs # K/uL INR APTT (18.6-31.3) SEC Lactate (0.20-2.00) mmol/L Sodium 133 L (136-145) mmol/L Potassium 4.2 (3.5-5.1) mmol/L Chloride 100 (98-107) mmol/L Carbon Dioxide 27.1 (21.0-32.0) mmol/L BUN 4 L (7.0-18.0) mg/dL Creatinine 0.6 (0.6-1.0) mg/dL Est Cr Clr Drug Dosing 103.57 mL/min Estimated GFR (MDRD) > 60.0 ml/min Glucose 121 H (74-106) mg/dL POC Glucose 103 123 H (60-110) mg/dL Calcium 7.5 L (8.5-10.1) mg/dL Magnesium 1.7 L (1.8-2.4) mg/dL Total Bilirubin 0.6 (0.2-1.0) mg/dL AST 42 H (15-37) IU/L ALT 59 (14-63) IU/L Alkaline Phosphatase 63 (46-116) U/L Total Protein 6.2 L (6.4-8.2) g/dL Albumin 2.3 L (3.4-5.0) g/dL Globulin 3.9 (2.6-4.0) g/dL Albumin/Globulin Ratio 0.6 L (0.9-1.6) Med Orders - Current: Current Medications Acetaminophen (Tylenol) 650 mg PO Q6H PRN PRN Reason: Pain (mild 1-3) Albuterol (Proventil Neb Soln) 2.5 mg NEB ONETIME PRN PRN Reason: Wheezing Atropine Sulfate (Atropine 0.1 Mg/Ml) 0.5 mg IVPUSH ASDIRECTED PRN PRN Reason: Hypo-perfusion Atropine Sulfate (Atropine 0.1 Mg/Ml) 1 mg IVPUSH ASDIRECTED PRN PRN Reason: Hypo-Perfusion Dextrose/Water (Dextrose 50% In Water) 50 ml IVPUSH ASDIRECTED PRN PRN Reason: Hypoglycemia Diphenhydramine HCl (Benadryl) 25 mg IVPUSH Q4H PRN PRN Reason: Itching Diphenhydramine HCl (Benadryl) 25 mg IVPUSH Q6H PRN PRN Reason: Itching Diphenhydramine HCl (Benadryl) 25 mg PO Q6H PRN PRN Reason: Itching Epinephrine HCl (Epinephrine 1:10,000) 1 mg IVPUSH ASDIRECTED PRN PRN Reason: ACLS Guidelines Fentanyl (Sublimaze) 50 - 100 mcg IVPUSH Q5M PRN PRN Reason: Pain Last Admin: 01/25/20 14:37 Dose: 50 mcg Documented by: Lactated Ringer's (Ringers, Lactated) 1,000 mls @ 150 mls/hr IV ASDIRECTED [facility] Last Admin: 01/26/20 09:23 Dose: 150 mls/hr Documented by: Cefoxitin Sodium 2 gm/ Premix 50 mls @ 100 mls/hr IV Q6H [facility] Last Admin: 01/26/20 10:12 Dose: 100 mls/hr Documented by: Insulin Aspart (Novolog) 0 unit SUBCUT ACBREAKFASTANDBED [facility]; Protocol Last Admin: 01/26/20 06:43 Dose: Not Given Documented by: Morphine Sulfate (Morphine Logistics Project Manager 30 Mg In 30 Ml) 0 mg IV ASDIRECTED [facility]; Protocol Last Admin: 01/26/20 03:46 Dose: 30 mg Documented by: Multivitamins/Minerals/Vitamin C (Tab-A-Brionna) 1 tab PO DAILY [facility] Last Admin: 01/26/20 08:56 Dose: 1 tab Documented by: Naloxone HCl (Narcan) 0.1 mg IVPUSH ASDIRECTED PRN PRN Reason: Respiratory Depression Naloxone HCl (Narcan) 0.04 mg IVPUSH Q3M PRN PRN Reason: Respiratory Depression Ondansetron HCl (Zofran) 4 mg PO Q6H PRN PRN Reason: Nausea/Vomiting Ondansetron HCl (Zofran) 4 mg IVPUSH Q6H PRN PRN Reason: Nausea/Vomiting Polyethylene Glycol (Miralax) 17 gm PO DAILY [facility] Sodium Chloride (Saline Flush) 10 ml FLUSH ASDIRECTED PRN PRN Reason: Keep Vein Open Sodium Chloride (Saline Flush) 2.5 ml FLUSH ASDIRECTED PRN PRN Reason: Keep Vein Open Sodium Chloride (Normal Saline) 10 ml IV ASDIRECTED PRN PRN Reason: IV Use Discontinued Medications Bupivacaine HCl (Marcaine 0.5%) Confirm Administered Dose 30 ml .ROUTE .STK-MED ONE Stop: 01/25/20 08:17 Bupivacaine HCl (Marcaine 0.5%) Confirm Administered Dose 120 ml .ROUTE .STK-MED ONE Stop: 01/25/20 12:41 Cefazolin Sodium (Ancef) Confirm Administered Dose 2 gm .ROUTE .STK-MED ONE Stop: 01/25/20 09:27 Cefazolin Sodium (Ancef) Confirm Administered Dose 1 gm .ROUTE .STK-MED ONE Stop: 01/25/20 12:40 Fentanyl (Sublimaze) Confirm Administered Dose 250 mcg .ROUTE .STK-MED ONE Stop: 01/25/20 07:16 Fentanyl (Sublimaze) Confirm Administered Dose 100 mcg .ROUTE .STK-MED ONE Stop: 01/25/20 09:56 Fentanyl (Sublimaze) Confirm Administered Dose 100 mcg .ROUTE .STK-MED ONE Stop: 01/25/20 10:43 Fentanyl (Sublimaze) Confirm Administered Dose 100 mcg .ROUTE .STK-MED ONE Stop: 01/25/20 11:44 Fentanyl (Sublimaze) Confirm Administered Dose 100 mcg .ROUTE .STK-MED ONE Stop: 01/25/20 13:10 Glycopyrrolate (Robinul) Confirm Administered Dose 0.4 mg .ROUTE .STK-MED ONE Stop: 01/25/20 07:16 Hydromorphone HCl (Dilaudid) Confirm Administered Dose 2 mg .ROUTE .STK-MED ONE Stop: 01/25/20 10:43 Cefazolin Sodium/Dextrose 2 gm (/ Premix) 50 mls @ 100 mls/hr IV ONETIME ONE Stop: 01/22/20 11:13 Last Admin: 01/25/20 21:53 Dose: Not Given Documented by: Lactated Ringer's (Ringers, Lactated) 1,000 mls @ 125 mls/hr IV ASDIRECTED [facility] Last Admin: 01/25/20 08:52 Dose: 125 mls/hr Documented by: Sodium Chloride (Normal Saline) Confirm Administered Dose 20 mls @ as directed .ROUTE .STK-MED ONE Stop: 01/25/20 09:27 Cefoxitin Sodium 2 gm/ Premix 50 mls @ 100 mls/hr IV Q6H [facility] Last Admin: 01/25/20 21:50 Dose: Not Given Documented by: Magnesium Sulfate 4 gm/ Premix 100 mls @ 50 mls/hr IV ONETIME ONE Stop: 01/25/20 17:51 Last Admin: 01/25/20 21:50 Dose: Not Given Documented by: Magnesium Sulfate 4 gm/ Premix 100 mls @ 33.333 mls/hr IV ONETIME ONE Stop: 01/25/20 18:59 Last Admin: 01/25/20 17:43 Dose: 33.333 mls/hr Documented by: Labetalol HCl (Normodyne) Confirm Administered Dose 100 mg .ROUTE .STK-MED ONE Stop: 01/25/20 13:28 Lidocaine (Xylocaine-Mpf 2%) Confirm Administered Dose 5 ml .ROUTE .STK-MED ONE Stop: 01/25/20 07:16 Midazolam HCl (Versed 1 Mg/Ml) Confirm Administered Dose 2 mg .ROUTE .STK-MED ONE Stop: 01/25/20 07:16 Ondansetron HCl (Zofran) Confirm Administered Dose 4 mg .ROUTE .STK-MED ONE Stop: 01/25/20 07:16 Oxycodone/Acetaminophen (Percocet 325-5 Mg) 2 tab PO Q4H PRN PRN Reason: Pain (severe 7-10) Propofol (Diprivan 20 Ml) Confirm Administered Dose 200 mg .ROUTE .STK-MED ONE Stop: 01/25/20 07:16 Rocuronium [place] (Rocuronium [place]) Confirm Administered Dose 50 mg .ROUTE .STK-MED ONE Stop: 01/25/20 07:16 Rocuronium [place] (Rocuronium [place]) Confirm Administered Dose 50 mg .ROUTE .STK-MED ONE Stop: 01/25/20 10:21 - Exam Wound/Incisions: Healing Well, Dressing Dry and Intact, Other (serosanguinous drainage from RUQ drain ) General: Alert, Oriented HEENT: Pupils Equal, Pupils Reactive Lungs: Clear to Auscultation, Normal Respiratory Effort Cardiovascular: Regular Rate, Regular Rhythm GI/Abdominal Exam: Soft, Non-Tender, No Distention, No Mass Skin: Warm, Dry, Intact Sepsis Event Note - Evaluation Sepsis Screening Result: Sepsis Risk - Focused Exam Vital Signs: Vital Signs Temp Resp BP Pulse Ox 01/26/20 07:00 26 H 109/71 95 01/26/20 06:00 22 H 108/64 98 01/26/20 05:00 21 H 116/76 98 01/26/20 04:00 36.5 C 24 H 122/84 97 01/26/20 03:00 25 H 111/74 97 01/26/20 02:00 25 H 111/74 97 01/26/20 01:00 11 L 116/76 98 01/26/20 00:00 36.7 C 21 H 114/74 97 Date Exam was Performed: 01/26/20 Time Exam was Performed: 11:17 - Problem List & Annotations (1) Acute cholecystitis due to biliary calculus SNOMED Code(s): 22105354141256 Code(s): K80.00 - CALCULUS OF GALLBLADDER W ACUTE CHOLECYST W/O OBSTRUCTION Status: Acute Current Visit: Yes - Problem List Review Problem List Initiated/Reviewed/Updated: Yes - My Orders Last 24 Hours: Active Orders 24 hr Category Date Time Status Patient Status [ADT] Routine ADT 01/25/20 13:45 Active Transfer Patient (Change bed) [ADT] Routine ADT 01/26/20 08:08 Ordered Blood Glucose Check, Bedside [RC] QIDACANDBED Care 01/25/20 13:45 Active Communication Order [RC] PER UNIT ROUTINE Care 01/25/20 14:01 Active Intake and Output [RC] Q12H Care 01/25/20 13:46 Active Notify Provider Vital Signs [RC] ASDIRECTED Care 01/25/20 13:30 Active Oxygen Therapy [RC] PRN Care 01/25/20 13:45 Active ONLINE CONTENT DEVELOPER Record [RC] Q12H Care 01/25/20 14:01 Active RT Aerosol Therapy [RC] ASDIRECTED Care 01/25/20 13:30 Active RT Aerosol Therapy [RC] ASDIRECTED Care 01/25/20 13:30 Active RT Aerosol Therapy [RC] ASDIRECTED Care 01/25/20 13:30 Active RT Incentive Spirometry [RC] Q1HWA Care 01/25/20 13:45 Active Up ad Maranda [RC] ASDIRECTED Care 01/26/20 08:08 Active Urinary Catheter Removal [RC] PER UNIT ROUTINE Care 01/26/20 10:40 Active Vital Signs [RC] PER UNIT ROUTINE Care 01/25/20 14:01 Active Vital Signs [RC] Q4H Care 01/25/20 13:45 Active Wound Care [RC] Q12H Care 01/25/20 13:45 Active Regular Diet [DIET] Diet 01/26/20 Lunch Active Acetaminophen [Tylenol] Med 01/25/20 13:45 Active 650 mg PO Q6H PRN Albuterol [Proventil Neb Soln] Med 01/25/20 13:30 Active 2.5 mg NEB ONETIME PRN Atropine [Atropine 0.1 MG/ML] Med 01/25/20 13:30 Active 0.5 mg IVPUSH ASDIRECTED PRN Atropine [Atropine 0.1 MG/ML] Med 01/25/20 13:30 Active 1 mg IVPUSH ASDIRECTED PRN Dextrose 50% in Water Med 01/25/20 13:30 Active 50 ml IVPUSH ASDIRECTED PRN EPINEPHrine [EPINEPHrine 1:10,000] Med 01/25/20 13:30 Active 1 mg IVPUSH ASDIRECTED PRN Insulin Aspart [NovoLOG] Med 01/25/20 21:00 Active See Protocol SUBCUT ACBREAKFASTANDBED Lactated Ringers [Ringers, Lactated] 1,000 ml Med 01/25/20 13:45 Active IV ASDIRECTED Morphine PF [Morphine ONLINE CONTENT DEVELOPER 30 MG in 30 ML] Med 01/25/20 14:00 Active See Protocol IV ASDIRECTED Multivitamins [Tab-A-Brionna] Med 01/26/20 09:00 Active 1 tab PO DAILY Naloxone [Narcan] Med 01/25/20 14:00 Active 0.04 mg IVPUSH Q3M PRN Naloxone [Narcan] Med 01/25/20 13:30 Active 0.1 mg IVPUSH ASDIRECTED PRN Ondansetron [Zofran] Med 01/25/20 14:00 Active 4 mg IVPUSH Q6H PRN cefOXitin [Mefoxin in Dextrose,Iso-Osm 2 GM/50 ML] 2 gm Med 01/25/20 22:00 Active Premix Bag 1 bag IV Q6H diphenhydrAMINE [Benadryl] Med 01/25/20 13:45 Active 25 mg IVPUSH Q4H PRN diphenhydrAMINE [Benadryl] Med 01/25/20 14:00 Active 25 mg IVPUSH Q6H PRN diphenhydrAMINE [Benadryl] Med 01/25/20 14:00 Active 25 mg PO Q6H PRN fentaNYL [Sublimaze] Med 01/25/20 13:30 Active 50 - 100 mcg IVPUSH Q5M PRN polyethylene glycoL 3350 [MiraLAX] Med 01/26/20 13:00 Active 17 gm PO DAILY Abdominal Binder [OM.PC] Per Unit Routine Oth 01/25/20 13:46 Ordered Pulse Oximetry Continuous Monitoring [OM.PC] Routine Oth 01/25/20 14:01 Ordered SCD [Sequential Compression Device] [OM.PC] Routine Oth 01/25/20 13:51 Ordered Medication Orders Acetaminophen (Tylenol) 650 mg PO Q6H PRN PRN Reason: Pain (mild 1-3) Albuterol (Proventil Neb Soln) 2.5 mg NEB ONETIME PRN PRN Reason: Wheezing Atropine Sulfate (Atropine 0.1 Mg/Ml) 0.5 mg IVPUSH ASDIRECTED PRN PRN Reason: Hypo-perfusion Atropine Sulfate (Atropine 0.1 Mg/Ml) 1 mg IVPUSH ASDIRECTED PRN PRN Reason: Hypo-Perfusion Dextrose/Water (Dextrose 50% In Water) 50 ml IVPUSH ASDIRECTED PRN PRN Reason: Hypoglycemia Diphenhydramine HCl (Benadryl) 25 mg IVPUSH Q4H PRN PRN Reason: Itching Diphenhydramine HCl (Benadryl) 25 mg IVPUSH Q6H PRN PRN Reason: Itching Diphenhydramine HCl (Benadryl) 25 mg PO Q6H PRN PRN Reason: Itching Epinephrine HCl (Epinephrine 1:10,000) 1 mg IVPUSH ASDIRECTED PRN PRN Reason: ACLS Guidelines Fentanyl (Sublimaze) 50 - 100 mcg IVPUSH Q5M PRN PRN Reason: Pain Last Admin: 01/25/20 14:37 Dose: 50 mcg Documented by: Admin: 01/25/20 14:30 Dose: 50 mcg Documented by: HANANE Lactated Ringer's (Ringers, Lactated) 1,000 mls @ 150 mls/hr IV ASDIRECTED [facility] Last Admin: 01/26/20 09:23 Dose: 150 mls/hr Documented by: Infusion: 01/26/20 09:16 Dose: 150 mls/hr Documented by: Admin: 01/26/20 02:35 Dose: 150 mls/hr Documented by: Infusion: 01/26/20 02:35 Dose: 150 mls/hr Documented by: Admin: 01/25/20 20:05 Dose: 150 mls/hr Documented by: JUDY Cefoxitin Sodium 2 gm/ Premix 50 mls @ 100 mls/hr IV Q6H [facility] Last Admin: 01/26/20 10:12 Dose: 100 mls/hr Documented by: Infusion: 01/26/20 04:28 Dose: 100 mls/hr Documented by: Admin: 01/26/20 03:58 Dose: 100 mls/hr Documented by: Infusion: 01/25/20 22:41 Dose: 100 mls/hr Documented by: Admin: 01/25/20 22:11 Dose: 100 mls/hr Documented by: ZENY Insulin Aspart (Novolog) 0 unit SUBCUT ACBREAKFASTANDBED [facility]; Protocol Last Admin: 01/26/20 06:43 Dose: Not Given Documented by: Admin: 01/25/20 22:08 Dose: Not Given Documented by: ZENY Morphine Sulfate (Morphine Logistics Project Manager 30 Mg In 30 Ml) 0 mg IV ASDIRECTED [facility]; Protocol Last Admin: 01/26/20 03:46 Dose: 30 mg Documented by: ZENY Cosigned by: JUDY Admin: 01/25/20 15:52 Dose: 30 mg Documented by: AMY Cosigned by: SHEBA Multivitamins/Minerals/Vitamin C (Tab-A-Brionna) 1 tab PO DAILY [facility] Last Admin: 01/26/20 08:56 Dose: 1 tab Documented by: MADISON Naloxone HCl (Narcan) 0.1 mg IVPUSH ASDIRECTED PRN PRN Reason: Respiratory Depression Naloxone HCl (Narcan) 0.04 mg IVPUSH Q3M PRN PRN Reason: Respiratory Depression Ondansetron HCl (Zofran) 4 mg PO Q6H PRN PRN Reason: Nausea/Vomiting Ondansetron HCl (Zofran) 4 mg IVPUSH Q6H PRN PRN Reason: Nausea/Vomiting Polyethylene Glycol (Miralax) 17 gm PO DAILY [facility] Sodium Chloride (Saline Flush) 10 ml FLUSH ASDIRECTED PRN PRN Reason: Keep Vein Open Sodium Chloride (Saline Flush) 2.5 ml FLUSH ASDIRECTED PRN PRN Reason: Keep Vein Open Sodium Chloride (Normal Saline) 10 ml IV ASDIRECTED PRN PRN Reason: IV Use - Plan Plan (Free Text/Narrative):: Pain: IV morphine ONLINE CONTENT DEVELOPER. Will transition to po medications this evening once patient has been more mobile through the day. CV: Tachycardia is improved. BP stable. Pulm: Slightly tachypneic but likely due to and RUQ incision. Encourage IS use and out of bed activity. GI: Ok to advance to regular diet. Encouraged patient to stick to small frequent meals. Miralax daily. Multivitamin daily. Renal: UOP adequate. Solis out. BUN CR normal. Will replace mag IV today. ID: WBC decreased. Will stop IV anitbiotics once normal. Heme: Heme down 1gm today likely due to blood loss. Px: SCDs Ok to d/c pulse ox and cardiac monitoring. Can transfer to floor. Possible d/c tomorrow.
[2020-01-26] MEDS: Polyethylene Glycol 3350 Powder 17 GM Packet PO SCH (13:51)
[2020-01-26] MEDS ORDERED: Acetaminophen/oxyCODONE 325-5 MG Tab PO PRN (15:32)
[2020-01-26] MEDS ORDERED: Morphine 4 MG/ML Syringe IVPUSH PRN (15:32)
[2020-01-27] MEDS: cefOXitin 2 GM in Premix Bag 1 BAG IV SCH (04:18)
[2020-01-27 06:44] LABS: BLOOD UREA NITROGEN,BUN 3 mg/dL (7.0-18.0); CARBON DIOXIDE,CO2 24.7 mmol/L (21.0-32.0); CHLORIDE,CL 100 mmol/L (98-107); GLUCOSE RANDOM 116 mg/dL (74-106); POTASSIUM,K 3.6 mmol/L (3.5-5.1); SODIUM,NA 134 mmol/L (136-145)
[2020-01-27] MEDS: Insulin Aspart 100 Units/ML 3 ML Pen SUBCUT SCH (06:52)
[2020-01-27] MEDS ORDERED: Bisacodyl 5 MG Tab PO ONE (09:01)
[2020-01-27] MEDS: Polyethylene Glycol 3350 Powder 17 GM Packet PO SCH (09:17)
[2020-01-27] MEDS: Multivitamin Tab PO SCH (09:17)
--- NOTE | 2020-01-27 09:40 | PCM.SURGPN ---
- General Info Date of Service: 01/27/20 Date of Surgery/Procedure: 01/25/20 POD#: 2 Functional Status: Reports: Pain Controlled, Tolerating Diet, Ambulating, Urinating, New Symptoms - Review of Systems General: Reports: No Symptoms HEENT: Reports: No Symptoms Pulmonary: Reports: No Symptoms Cardiovascular: Reports: No Symptoms Gastrointestinal: Denies: Flatus Genitourinary: Reports: No Symptoms Musculoskeletal: Reports: No Symptoms Skin: Reports: No Symptoms - Patient Data Vitals - Most Recent: Last Vital Signs Temp 37.1 C 01/27/20 04:00 Pulse 119 H 01/25/20 15:15 Resp 19 01/27/20 04:00 BP 115/65 01/27/20 04:00 Pulse Ox 96 01/27/20 04:00 Weight - Most Recent: 117.679 kg I&O - Last 24 Hours: Intake & Output 01/26/20 01/27/20 01/27/20 22:59 06:59 14:59 Intake Total 2650 290 Output Total 2190 850 Balance 460 -560 Lab Results Last 24 Hrs: Laboratory Results - last 24 hr 01/26/20 01/27/20 01/27/20 Range/Units 21:37 05:55 05:55 WBC 14.53 H (4.0-11.0) K/uL RBC 5.60 (4.30-5.90) M/uL Hgb 10.8 L (12.0-16.0) g/dL Hct 35.4 L (36.0-46.0) % MCV 63.2 L (80.0-98.0) fL MCH 19.3 L (27.0-32.0) pg MCHC 30.5 L (31.0-37.0) g/dL RDW Std Deviation 37.2 (28.0-62.0) fl RDW Coeff of Max 16 H (11.0-15.0) % Plt Count 291 (150-400) K/uL MPV 10.10 (7.40-12.00) fL Nucleated RBC % 0.0 /100WBC Nucleated RBCs # 0 K/uL Sodium 134 L (136-145) mmol/L Potassium 3.6 (3.5-5.1) mmol/L Chloride 100 (98-107) mmol/L Carbon Dioxide 24.7 (21.0-32.0) mmol/L BUN 3 L (7.0-18.0) mg/dL Creatinine 0.6 (0.6-1.0) mg/dL Est Cr Clr Drug Dosing 103.57 mL/min Estimated GFR (MDRD) > 60.0 ml/min Glucose 116 H (74-106) mg/dL POC Glucose 111 H (60-110) mg/dL Calcium 8.3 L (8.5-10.1) mg/dL Total Bilirubin 0.3 (0.2-1.0) mg/dL AST 22 (15-37) IU/L ALT 48 (14-63) IU/L Alkaline Phosphatase 67 (46-116) U/L Total Protein 7.1 (6.4-8.2) g/dL Albumin 2.6 L (3.4-5.0) g/dL Globulin 4.5 H (2.6-4.0) g/dL Albumin/Globulin Ratio 0.6 L (0.9-1.6) 20 Range/Units 06:43 WBC (4.0-11.0) K/uL RBC (4.30-5.90) M/uL Hgb (12.0-16.0) g/dL Hct (36.0-46.0) % MCV (80.0-98.0) fL MCH (27.0-32.0) pg MCHC (31.0-37.0) g/dL RDW Std Deviation (28.0-62.0) fl RDW Coeff of Max (11.0-15.0) % Plt Count (150-400) K/uL MPV (7.40-12.00) fL Nucleated RBC % /100WBC Nucleated RBCs # K/uL Sodium (136-145) mmol/L Potassium (3.5-5.1) mmol/L Chloride (98-107) mmol/L Carbon Dioxide (21.0-32.0) mmol/L BUN (7.0-18.0) mg/dL Creatinine (0.6-1.0) mg/dL Est Cr Clr Drug Dosing mL/min Estimated GFR (MDRD) ml/min Glucose (74-106) mg/dL POC Glucose 115 H (60-110) mg/dL Calcium (8.5-10.1) mg/dL Total Bilirubin (0.2-1.0) mg/dL AST (15-37) IU/L ALT (14-63) IU/L Alkaline Phosphatase (46-116) U/L Total Protein (6.4-8.2) g/dL Albumin (3.4-5.0) g/dL Globulin (2.6-4.0) g/dL Albumin/Globulin Ratio (0.9-1.6) Med Orders - Current: Current Medications Albuterol (Proventil Neb Soln) 2.5 mg NEB ONETIME PRN PRN Reason: Wheezing Insulin Aspart (Novolog) 0 unit SUBCUT ACBREAKFASTANDBED [facility]; Protocol Last Admin: 01/27/20 06:52 Dose: Not Given Documented by: Morphine Sulfate (Morphine) 4 mg IVPUSH Q2H PRN PRN Reason: Pain (severe 7-10) Last Admin: 01/27/20 09:06 Dose: 4 mg Documented by: Multivitamins/Minerals/Vitamin C (Tab-A-Brionna) 1 tab PO DAILY [facility] Last Admin: 01/27/20 09:17 Dose: 1 tab Documented by: Ondansetron HCl (Zofran) 4 mg IVPUSH Q6H PRN PRN Reason: Nausea/Vomiting Oxycodone/Acetaminophen (Percocet 325-5 Mg) 2 tab PO Q4H PRN PRN Reason: Pain (severe 7-10) Polyethylene Glycol (Miralax) 17 gm PO DAILY [facility] Last Admin: 01/27/20 09:17 Dose: 17 gm Documented by: Sodium Chloride (Saline Flush) 10 ml FLUSH ASDIRECTED PRN PRN Reason: Keep Vein Open Sodium Chloride (Saline Flush) 2.5 ml FLUSH ASDIRECTED PRN PRN Reason: Keep Vein Open Sodium Chloride (Normal Saline) 10 ml IV ASDIRECTED PRN PRN Reason: IV Use Discontinued Medications Acetaminophen (Tylenol) 650 mg PO Q6H PRN PRN Reason: Pain (mild 1-3) Atropine Sulfate (Atropine 0.1 Mg/Ml) 0.5 mg IVPUSH ASDIRECTED PRN PRN Reason: Hypo-perfusion Atropine Sulfate (Atropine 0.1 Mg/Ml) 1 mg IVPUSH ASDIRECTED PRN PRN Reason: Hypo-Perfusion Bisacodyl (Dulcolax) 10 mg PO ONETIME ONE Stop: 01/27/20 09:02 Bupivacaine HCl (Marcaine 0.5%) Confirm Administered Dose 30 ml .ROUTE .STK-MED ONE Stop: 01/25/20 08:17 Bupivacaine HCl (Marcaine 0.5%) Confirm Administered Dose 120 ml .ROUTE .STK-MED ONE Stop: 01/25/20 12:41 Cefazolin Sodium (Ancef) Confirm Administered Dose 2 gm .ROUTE .STK-MED ONE Stop: 01/25/20 09:27 Cefazolin Sodium (Ancef) Confirm Administered Dose 1 gm .ROUTE .STK-MED ONE Stop: 01/25/20 12:40 Dextrose/Water (Dextrose 50% In Water) 50 ml IVPUSH ASDIRECTED PRN PRN Reason: Hypoglycemia Diphenhydramine HCl (Benadryl) 25 mg IVPUSH Q4H PRN PRN Reason: Itching Diphenhydramine HCl (Benadryl) 25 mg IVPUSH Q6H PRN PRN Reason: Itching Diphenhydramine HCl (Benadryl) 25 mg PO Q6H PRN PRN Reason: Itching Epinephrine HCl (Epinephrine 1:10,000) 1 mg IVPUSH ASDIRECTED PRN PRN Reason: ACLS Guidelines Fentanyl (Sublimaze) Confirm Administered Dose 250 mcg .ROUTE .STK-MED ONE Stop: 01/25/20 07:16 Fentanyl (Sublimaze) Confirm Administered Dose 100 mcg .ROUTE .STK-MED ONE Stop: 01/25/20 09:56 Fentanyl (Sublimaze) Confirm Administered Dose 100 mcg .ROUTE .STK-MED ONE Stop: 01/25/20 10:43 Fentanyl (Sublimaze) Confirm Administered Dose 100 mcg .ROUTE .STK-MED ONE Stop: 01/25/20 11:44 Fentanyl (Sublimaze) Confirm Administered Dose 100 mcg .ROUTE .STK-MED ONE Stop: 01/25/20 13:10 Fentanyl (Sublimaze) 50 - 100 mcg IVPUSH Q5M PRN PRN Reason: Pain Last Admin: 01/25/20 14:37 Dose: 50 mcg Documented by: Glycopyrrolate (Robinul) Confirm Administered Dose 0.4 mg .ROUTE .STK-MED ONE Stop: 01/25/20 07:16 Hydromorphone HCl (Dilaudid) Confirm Administered Dose 2 mg .ROUTE .STK-MED ONE Stop: 01/25/20 10:43 Cefazolin Sodium/Dextrose 2 gm (/ Premix) 50 mls @ 100 mls/hr IV ONETIME ONE Stop: 01/22/20 11:13 Last Admin: 01/25/20 21:53 Dose: Not Given Documented by: Lactated Ringer's (Ringers, Lactated) 1,000 mls @ 125 mls/hr IV ASDIRECTED [facility] Last Admin: 01/25/20 08:52 Dose: 125 mls/hr Documented by: Sodium Chloride (Normal Saline) Confirm Administered Dose 20 mls @ as directed .ROUTE .[facility] ONE Stop: 01/25/20 09:27 Lactated Ringer's (Ringers, Lactated) 1,000 mls @ 150 mls/hr IV ASDIRECTED [facility] Last Infusion: 01/26/20 17:44 Dose: 0 mls/hr Documented by: Cefoxitin Sodium 2 gm/ Premix 50 mls @ 100 mls/hr IV Q6H [facility] Last Admin: 01/25/20 21:50 Dose: Not Given Documented by: Magnesium Sulfate 4 gm/ Premix 100 mls @ 50 mls/hr IV ONETIME ONE Stop: 01/25/20 17:51 Last Admin: 01/25/20 21:50 Dose: Not Given Documented by: Magnesium Sulfate 4 gm/ Premix 100 mls @ 33.333 mls/hr IV ONETIME ONE Stop: 01/25/20 18:59 Last Admin: 01/25/20 17:43 Dose: 33.333 mls/hr Documented by: Cefoxitin Sodium 2 gm/ Premix 50 mls @ 100 mls/hr IV Q6H [facility] Last Admin: 01/27/20 04:18 Dose: 100 mls/hr Documented by: Magnesium Sulfate 2 gm/ Premix 50 mls @ 50 mls/hr IV ONETIME ONE Stop: 01/26/20 12:25 Last Admin: 01/26/20 11:47 Dose: 50 mls/hr Documented by: Labetalol HCl (Normodyne) Confirm Administered Dose 100 mg .ROUTE .K-MED ONE Stop: 01/25/20 13:28 Lidocaine (Xylocaine-Mpf 2%) Confirm Administered Dose 0 ml .ROUTE .STK-MED ONE Stop: 01/25/20 07:16 Midazolam HCl (Versed 1 Mg/Ml) Confirm Administered Dose 0 mg .ROUTE .STK-MED ONE Stop: 01/25/20 07:16 Morphine Sulfate (Morphine [employer] 30 Mg In 30 Ml) 0 mg IV ASDIRECTED [facility]; Protocol Last Admin: 01/26/20 03:46 Dose: 30 mg Documented by: Naloxone HCl (Narcan) 0.1 mg IVPUSH ASDIRECTED PRN PRN Reason: Respiratory Depression Naloxone HCl (Narcan) 0.04 mg IVPUSH Q3M PRN PRN Reason: Respiratory Depression Ondansetron HCl (Zofran) Confirm Administered Dose 4 mg .ROUTE .STK-MED ONE Stop: 01/25/20 07:16 Ondansetron HCl (Zofran) 4 mg PO Q6H PRN PRN Reason: Nausea/Vomiting Oxycodone/Acetaminophen (Percocet 325-5 Mg) 2 tab PO Q4H PRN PRN Reason: Pain (severe 7-10) Propofol (Diprivan 20 Ml) Confirm Administered Dose 200 mg .ROUTE .STK-MED ONE Stop: 01/25/20 07:16 Rocuronium [place] (Rocuronium [place]) Confirm Administered Dose 50 mg .ROUTE .STK-MED ONE Stop: 01/25/20 07:16 Rocuronium [place] (Rocuronium [place]) Confirm Administered Dose 50 mg .ROUTE .STK-MED ONE Stop: 01/25/20 10:21 - Exam Wound/Incisions: Healing Well General: Alert, Oriented, Cooperative Lungs: Clear to Auscultation, Normal Respiratory Effort Cardiovascular: Regular Rhythm, Tachycardia (mild) GI/Abdominal Exam: Soft, Non-Tender, No Distention, No Mass, Other (Bowel sounds are present in all four quadrants) Extremities: Normal Inspection Skin: Warm, Dry, Intact Neurological: No New Focal Deficit Psy/Mental Status: Normal Affect Sepsis Event Note - Evaluation Sepsis Screening Result: Sepsis Risk - Focused Exam Vital Signs: Vital Signs Temp Resp BP Pulse Ox Pulse Ox 01/27/20 04:00 37.1 C 19 115/65 96 01/27/20 00:00 37.5 C 19 121/88 96 96 Date Exam was Performed: 06/20/20 Time Exam was Performed: 09:32 - Problem List & Annotations (1) Acute cholecystitis due to biliary calculus SNOMED Code(s): 06878437036870 Code(s): K80.00 - CALCULUS OF GALLBLADDER W ACUTE CHOLECYST W/O OBSTRUCTION Status: Acute Current Visit: Yes - Problem List Review Problem List Initiated/Reviewed/Updated: Yes - My Orders Last 24 Hours: Active Orders 24 hr Category Date Time Status Regular Diet [DIET] Diet 01/26/20 Lunch Active Acetaminophen/oxyCODONE [Percocet 325-5 MG] Med 01/26/20 15:32 Active 2 tab PO Q4H PRN Morphine Med 01/26/20 15:32 Active 4 mg IVPUSH Q2H PRN Multivitamins [Tab-A-Brionna] Med 01/26/20 09:00 Active 1 tab PO DAILY polyethylene glycoL 3350 [MiraLAX] Med 01/26/20 13:00 Active 17 gm PO DAILY Medication Orders Albuterol (Proventil Neb Soln) 2.5 mg NEB ONETIME PRN PRN Reason: Wheezing Insulin Aspart (Novolog) 0 unit SUBCUT ACBREAKFASTANDBED [facility]; Protocol Last Admin: 01/27/20 06:52 Dose: Not Given Documented by: Admin: 01/26/20 22:22 Dose: Not Given Documented by: Admin: 01/26/20 06:43 Dose: Not Given Documented by: Admin: 01/25/20 22:08 Dose: Not Given Documented by: ZENY Morphine Sulfate (Morphine) 4 mg IVPUSH Q2H PRN PRN Reason: Pain (severe 7-10) Last Admin: 01/27/20 09:06 Dose: 4 mg Documented by: CONNIE Multivitamins/Minerals/Vitamin C (Tab-A-Brionna) 1 tab PO DAILY [facility] Last Admin: 01/27/20 09:17 Dose: 1 tab Documented by: Admin: 01/26/20 08:56 Dose: 1 tab Documented by: MADISON Ondansetron HCl (Zofran) 4 mg IVPUSH Q6H PRN PRN Reason: Nausea/Vomiting Oxycodone/Acetaminophen (Percocet 325-5 Mg) 2 tab PO Q4H PRN PRN Reason: Pain (severe 7-10) Polyethylene Glycol (Miralax) 17 gm PO DAILY [facility] Last Admin: 01/27/20 09:17 Dose: 17 gm Documented by: Admin: 01/26/20 13:51 Dose: 17 gm Documented by: MADISON Sodium Chloride (Saline Flush) 10 ml FLUSH ASDIRECTED PRN PRN Reason: Keep Vein Open Sodium Chloride (Saline Flush) 2.5 ml FLUSH ASDIRECTED PRN PRN Reason: Keep Vein Open Sodium Chloride (Normal Saline) 10 ml IV ASDIRECTED PRN PRN Reason: IV Use - Plan Plan (Free Text/Narrative):: Patients pain is well controlled with minimal pain medications. Drain with scant serous output. Dressings removed and drain removed today. OnQ pump left in place as it still has ~ 1 day worth of medication left. Patient tolerated liquids and has good UOP. Bun/Cr normal. Fair appetite. Eating small meals but no nausea or vomiting. No flatus yet, but bowel sounds throughout. Patient can shower today. Ok to change dressing over drain site as needed to keep clean and dry. Pain: Percocet prn. IV morphine only for severe pain. CV: Mildly tachycardic this am (HR 102), but likely due to some pain. Heart rate improved overall. Pulm: Weaned off NC. IS use and OOB activity today. GI: Dulcolax 10mg this am. Miralax daily. Regular diet as tolerated. Can D/C home once passing flatus. Renal: UOP adequate. BUN/Cr stable. Daily multivitamin Heme: Hgb stable ID: [id number], however no signs of infection. Likely mildly elevated due to and stress of surgery. Ok to discontinue IV antibiotics. No need for further antibiotics. Px: SCDs. D/C home today if starts passing flatus.
--- NOTE | 2020-01-29 08:19 | PCM.DCSUM1 ---
Discharge Summary - Hospital Course Free Text/Narrative:: Patient is a 29 year old female who was scheduled for an elective laparoscopic possible open cholecystectomy for symptomatic cholelithiasis. Intraoperatively she was found to have severe inflammation around the gallbladder as well as a very short cystic duct. Because of this her laparoscopic case was converted to open. The case was long and difficult, however my partner and I were able to get the gallbladder out safely. The patient was closely monitored in the ICU postoperatively. She was slightly tachycardic but this improved by the next morning. Her CBC and CMP remained stable. She had a slightly elevated white blood cell count but this is normal and . She was kept on IV anabiotic's for 36 hours afterwards at which time these were discontinued. Her pain was well-controlled on IV morphine and she was transitioned to Percocet with good control of her pain after that. She was given a bowel regiment and by POD #2 she was passing gas. She was given a regular diet on POD #1 and she tolerated this without nausea or vomiting. Her heart tones were documented pre-op, immediately post op, and the evening of post op day 0. They were the same each time. Bedside hand held US showed good movement. Her drain was removed on POD #2. She had minimal serosanguineous switching to scant serous drainage. She was discharged home on POD #2. - Discharge Data Discharge Date: 01/27/20 Discharge Disposition: Home, Self-Care 01 Condition: Good - Referral to Home Health Primary Care Physician: Clifton Quinteros MD - Discharge Diagnosis/Problem(s) (1) Acute cholecystitis due to biliary calculus SNOMED Code(s): 21994328124021 ICD Code: K80.00 - CALCULUS OF GALLBLADDER W ACUTE CHOLECYST W/O OBSTRUCTION Status: Acute - Patient Summary/Data Operative Procedure(s) Performed: Laparoscopic converted to open cholecystectomy - Patient Instructions Diet: Regular Diet as Tolerated Diet, Other: Avoid greasy/fatty foods for one month Activity: No Lifting Over 20 Pounds, Rest and Relax Today Driving: Do Not Drive Showering/Bathing: May Shower, No Tub Bathing/Swimming Wound/Incision Care: Keep Operative Site/Wound Site Clean and Dry Notify Provider of: Fever, Increased Pain, Swelling and Redness, Drainage, Nausea and/or Vomiting Other/Special Instructions: Come in [facility] to the [facility] between 8-12 to have your OnQ pump removed. - Discharge Plan *PRESCRIPTION DRUG MONITORING PROGRAM REVIEWED*: Yes *COPY OF PRESCRIPTION DRUG MONITORING REPORT IN PATIENT NADIA: Yes Prescriptions/Med Rec: bisacodyL [Dulcolax] 5 mg PO BID #30 tab polyethylene glycoL 3350 [MiraLAX] 17 gm PO DAILY 14 Days #1 packet Home Medications: Home Meds Levonorgestrel/Ethin.estradiol [Clotilde-28 Tablet] 1 tab PO DAILY 07/31/17 [History] Budesonide [Pulmicort Flexhaler] 1 puff INH BID 12/18/19 [History] Albuterol [Proair HFA] 2 puff INH ASDIRECTED PRN 01/22/20 [History] Budesonide [Pulmicort Flexhaler] 1 puff INH BID 01/22/20 [History] Insulin NPH/Insulin Reg,Human [Novolin 70-30] 1 injection SUBCUT BID 01/22/20 [History] Lispro 10 mg PO BID 01/22/20 [History] Pnv No.95/Ferrous Fum/Folic AC [ Vitamin Tablet] 1 tab PO DAILY 01/22/20 [History] Multivitamins [Tab-A-Brionna] 1 tab PO DAILY tablet 01/27/20 [Rx] bisacodyL [Dulcolax] 5 mg PO BID #30 tab 01/27/20 [Rx] polyethylene glycoL 3350 [MiraLAX] 17 gm PO DAILY 14 Days #1 packet 01/27/20 [Rx] Patient Handouts: Bisacodyl tablets and capsules, Laparoscopic Cholecystectomy, Care After, [id number], Polyethylene Glycol powder Referrals: Jannet Shirley MD [Physician] - (Walk in to Dr. Shirley's office on Wednesday for removal of OnQ pain system; at that time they will inform you of time for your follow up appointment next WednesdayFebruary 04. ) - Discharge Summary/Plan Comment DC Time >30 min.: No - General Info Functional Status: Reports: Pain Controlled, Tolerating Diet, Ambulating, Urinating - Review of Systems General: Reports: No Symptoms HEENT: Reports: No Symptoms Pulmonary: Reports: No Symptoms Cardiovascular: Reports: No Symptoms Gastrointestinal: Reports: Flatus Genitourinary: Reports: No Symptoms Musculoskeletal: Reports: No Symptoms Skin: Reports: No Symptoms Neurological: Reports: No Symptoms - Patient Data Vitals - Most Recent: Last Vital Signs Temp 37.2 C 01/27/20 12:00 Pulse 99 01/27/20 12:00 Resp 20 01/27/20 12:00 BP 114/68 01/27/20 12:00 Pulse Ox 98 01/27/20 12:00 Weight - Most Recent: 117.679 kg Med Orders - Current: Current Medications Discontinued Medications Acetaminophen (Tylenol) 650 mg PO Q6H PRN PRN Reason: Pain (mild 1-3) Albuterol (Proventil Neb Soln) 2.5 mg NEB ONETIME PRN PRN Reason: Wheezing Atropine Sulfate (Atropine 0.1 Mg/Ml) 0.5 mg IVPUSH ASDIRECTED PRN PRN Reason: Hypo-perfusion Atropine Sulfate (Atropine 0.1 Mg/Ml) 1 mg IVPUSH ASDIRECTED PRN PRN Reason: Hypo-Perfusion Bisacodyl (Dulcolax) 10 mg PO ONETIME ONE Stop: 01/27/20 09:02 Last Admin: 01/27/20 09:37 Dose: 10 mg Documented by: Bupivacaine HCl (Marcaine 0.5%) Confirm Administered Dose 30 ml .ROUTE .STK-MED ONE Stop: 01/25/20 08:17 Bupivacaine HCl (Marcaine 0.5%) Confirm Administered Dose 120 ml .ROUTE .STK-MED ONE Stop: 01/25/20 12:41 Cefazolin Sodium (Ancef) Confirm Administered Dose 2 gm .ROUTE .STK-MED ONE Stop: 01/25/20 09:27 Cefazolin Sodium (Ancef) Confirm Administered Dose 1 gm .ROUTE .STK-MED ONE Stop: 01/25/20 12:40 Dextrose/Water (Dextrose 50% In Water) 50 ml IVPUSH ASDIRECTED PRN PRN Reason: Hypoglycemia Diphenhydramine HCl (Benadryl) 25 mg IVPUSH Q4H PRN PRN Reason: Itching Diphenhydramine HCl (Benadryl) 25 mg IVPUSH Q6H PRN PRN Reason: Itching Diphenhydramine HCl (Benadryl) 25 mg PO Q6H PRN PRN Reason: Itching Epinephrine HCl (Epinephrine 1:10,000) 1 mg IVPUSH ASDIRECTED PRN PRN Reason: ACLS Guidelines Fentanyl (Sublimaze) Confirm Administered Dose 250 mcg .ROUTE .STK-MED ONE Stop: 01/25/20 07:16 Fentanyl (Sublimaze) Confirm Administered Dose 100 mcg .ROUTE .STK-MED ONE Stop: 01/25/20 09:56 Fentanyl (Sublimaze) Confirm Administered Dose 100 mcg .ROUTE .STK-MED ONE Stop: 01/25/20 10:43 Fentanyl (Sublimaze) Confirm Administered Dose 100 mcg .ROUTE .STK-MED ONE Stop: 01/25/20 11:44 Fentanyl (Sublimaze) Confirm Administered Dose 100 mcg .ROUTE .STK-MED ONE Stop: 01/25/20 13:10 Fentanyl (Sublimaze) 50 - 100 mcg IVPUSH Q5M PRN PRN Reason: Pain Last Admin: 01/25/20 14:37 Dose: 50 mcg Documented by: Glycopyrrolate (Robinul) Confirm Administered Dose 0.4 mg .ROUTE .STK-MED ONE Stop: 01/25/20 07:16 Hydromorphone HCl (Dilaudid) Confirm Administered Dose 2 mg .ROUTE .STK-MED ONE Stop: 01/25/20 10:43 Cefazolin Sodium/Dextrose 2 gm (/ Premix) 50 mls @ 100 mls/hr IV ONETIME ONE Stop: 01/22/20 11:13 Last Admin: 01/25/20 21:53 Dose: Not Given Documented by: Lactated Ringer's (Ringers, Lactated) 1,000 mls @ 125 mls/hr IV ASDIRECTED [facility] Last Admin: 01/25/20 08:52 Dose: 125 mls/hr Documented by: Sodium Chloride (Normal Saline) Confirm Administered Dose 20 mls @ as directed .ROUTE .STK-MED ONE Stop: 01/25/20 09:27 Lactated Ringer's (Ringers, Lactated) 1,000 mls @ 150 mls/hr IV ASDIRECTED [facility] Last Infusion: 01/26/20 17:44 Dose: 0 mls/hr Documented by: Cefoxitin Sodium 2 gm/ Premix 50 mls @ 100 mls/hr IV Q6H [facility] Last Admin: 01/25/20 21:50 Dose: Not Given Documented by: Magnesium Sulfate 4 gm/ Premix 100 mls @ 50 mls/hr IV ONETIME ONE Stop: 01/25/20 17:51 Last Admin: 01/25/20 21:50 Dose: Not Given Documented by: Magnesium Sulfate 4 gm/ Premix 100 mls @ 33.333 mls/hr IV ONETIME ONE Stop: 01/25/20 18:59 Last Admin: 01/25/20 17:43 Dose: 33.333 mls/hr Documented by: Cefoxitin Sodium 2 gm/ Premix 50 mls @ 100 mls/hr IV Q6H [facility] Last Admin: 01/27/20 04:18 Dose: 100 mls/hr Documented by: Magnesium Sulfate 2 gm/ Premix 50 mls @ 50 mls/hr IV ONETIME ONE Stop: 01/26/20 12:25 Last Admin: 01/26/20 11:47 Dose: 50 mls/hr Documented by: Insulin Aspart (Novolog) 0 unit SUBCUT ACBREAKFASTANDBED [facility]; Protocol Last Admin: 01/27/20 06:52 Dose: Not Given Documented by: Labetalol HCl (Normodyne) Confirm Administered Dose 100 mg .ROUTE .STK-MED ONE Stop: 01/25/20 13:28 Lidocaine (Xylocaine-Mpf 2%) Confirm Administered Dose 0 ml .ROUTE .STK-MED ONE Stop: 01/25/20 07:16 Midazolam HCl (Versed 1 Mg/Ml) Confirm Administered Dose 0 mg .ROUTE .STK-MED ONE Stop: 01/25/20 07:16 Morphine Sulfate (Morphine [employer] 30 Mg In 30 Ml) 0 mg IV ASDIRECTED [facility]; Protocol Last Admin: 01/26/20 03:46 Dose: 30 mg Documented by: Morphine Sulfate (Morphine) 4 mg IVPUSH Q2H PRN PRN Reason: Pain (severe 7-10) Last Admin: 01/27/20 09:06 Dose: 4 mg Documented by: Multivitamins/Minerals/Vitamin C (Tab-A-Brionna) 1 tab PO DAILY [facility] Last Admin: 01/27/20 09:17 Dose: 1 tab Documented by: Naloxone HCl (Narcan) 0.1 mg IVPUSH ASDIRECTED PRN PRN Reason: Respiratory Depression Naloxone HCl (Narcan) 0.04 mg IVPUSH Q3M PRN PRN Reason: Respiratory Depression Ondansetron HCl (Zofran) Confirm Administered Dose 4 mg .ROUTE .STK-MED ONE Stop: 01/25/20 07:16 Ondansetron HCl (Zofran) 4 mg PO Q6H PRN PRN Reason: Nausea/Vomiting Ondansetron HCl (Zofran) 4 mg IVPUSH Q6H PRN PRN Reason: Nausea/Vomiting Oxycodone/Acetaminophen (Percocet 325-5 Mg) 2 tab PO Q4H PRN PRN Reason: Pain (severe 7-10) Oxycodone/Acetaminophen (Percocet 325-5 Mg) 2 tab PO Q4H PRN PRN Reason: Pain (severe 7-10) Polyethylene Glycol (Miralax) 17 gm PO DAILY [facility] Last Admin: 01/27/20 09:17 Dose: 17 gm Documented by: Propofol (Diprivan 20 Ml) Confirm Administered Dose 200 mg .ROUTE .STK-MED ONE Stop: 01/25/20 07:16 Rocuronium [place] (Rocuronium [place]) Confirm Administered Dose 50 mg .ROUTE .STK-MED ONE Stop: 01/25/20 07:16 Rocuronium [place] (Rocuronium [place]) Confirm Administered Dose 50 mg .ROUTE .STK-MED ONE Stop: 01/25/20 10:21 Sodium Chloride (Saline Flush) 10 ml FLUSH ASDIRECTED PRN PRN Reason: Keep Vein Open Sodium Chloride (Saline Flush) 2.5 ml FLUSH ASDIRECTED PRN PRN Reason: Keep Vein Open Sodium Chloride (Normal Saline) 10 ml IV ASDIRECTED PRN PRN Reason: IV Use - Exam Quality Assessment: Reports: Supplemental Oxygen General: Reports: Alert, Oriented HEENT: Reports: Pupils Equal, Pupils Reactive Neck: Reports: Supple, Trachea Midline Lungs: Reports: Clear to Auscultation, Normal Respiratory Effort Cardiovascular: Reports: Regular Rate, Regular Rhythm GI/Abdominal Exam: Soft, Non-Tender, No Distention, No Mass Skin: Reports: Warm, Dry, Intact Wound/Incisions: Reports: Healing Well
--- NOTE | 2020-01-29 09:30 | OR ---
SURGEON: JANNET SHAY MD DATE OF PROCEDURE: 01/25/2020 PREOPERATIVE DIAGNOSIS: Symptomatic cholelithiasis. POSTOPERATIVE DIAGNOSIS: Severe acute on chronic cholecystitis secondary to cholelithiasis. PROCEDURE PERFORMED: Laparoscopic, converted to open, cholecystectomy. PRIMARY SURGEON: Jannet Shay MD SECONDARY SURGEON: Inderjit Shukla MD ANESTHESIA: General endotracheal anesthesia. FLUIDS: 3800 mL of crystalloid. ESTIMATED BLOOD LOSS: 450 mL. URINE OUTPUT: 410 mL. FINDINGS: Severely inflamed gallbladder containing a large 3 cm stone. The patient had an extremely short cystic duct as well. COMPLICATIONS: None. INDICATIONS: The patient is a 29-year-old female who presented to my clinic in her first trimester of her with symptomatic cholelithiasis. The patient and I discussed the need to wait until her second trimester. 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 She was cleared by Anesthesia for surgery. During this time, she suffered another episode of right upper quadrant pain. This was less severe and she stated that her pain resolved. Preoperatively, she was feeling comfortable and having no pain. The patient and I discussed the need for a laparoscopic, possible open, cholecystectomy. I explained the surgery, the expected perioperative course for laparoscopic or an open procedure as well as the risks including bleeding, infection, damage to surrounding structures, or possible effects. She verbalized understanding and wished to proceed. PROCEDURE IN DETAIL: The patient was brought into the OR and placed on the OR table in supine position. A time-out was completed verifying the patient's name, age, date of , allergies, and procedure to be performed. General endotracheal anesthesia was induced. The left arm was tucked to the patient's side and a Solis catheter placed. The abdomen was prepped and draped in usual standard fashion. I anesthetized the supraumbilical area with 0.5% Marcaine plain. A 2 cm incision was made using an 11 blade along the supraumbilical midline. Cautery was used to dissect down to level of subcutaneous fat. I then bluntly dissected down to the fascia. The patient had a large amount of subcutaneous fat making this somewhat difficult. Eventually, I was able to reach the fascia and elevated it with Kevyn's. It was incised sharply with Metzenbaum scissors. I then dissected down to the peritoneum. This was elevated with hemostats and opened sharply with the Metzenbaum scissors. Entry into the abdomen was palpated digitally. A 12 mm [place] trocar was then inserted in the abdomen and it was insufflated. A 5 mm 30-degree scope was inserted, and I inspected the area underneath my initial trocar placement. No damage to surrounding structures was noted. The patient was then placed into reverse Trendelenburg position and airplaned slightly to the left. 5 mm trocars were placed under direct visualization in the following locations; one in the epigastric area, one in the right flank, and one 2 fingerbreadths below the right subcostal margin in the midclavicular line. The dome of the gallbladder was grasped and elevated. Immediately, I noted the gallbladder to be thickened and inflamed and there were adhesions of the gallbladder wall to the surrounding omentum. These were taken down using gentle blunt dissection. I was able to then elevate the gallbladder and inspect my infundibulum. There was a severe amount of inflammation around the infundibulum itself. This distorted the landmarks around this area. In order to get a better manipulate the gallbladder with less tension, I placed an aspirating needle into the dome of the gallbladder. I aspirated about 80 mL of light green fluid out of the gallbladder. After doing this, I was then able to manipulate the gallbladder more easily and began gently dissecting along the infundibulum. Using a [place] dissector as well as hook cautery, I was able to take down some of the lateral adhesions of the infundibulum to the surrounding structures. I then bluntly dissected around the area, which I felt contained the cystic duct. Again, the inflammation around this area was dense, and I was having trouble identifying my intraoperative structures. I called my partner, Dr. Inderjit Shukla, into the case after approximately 1 hour of dissection in order to see if he could assist me in my laparoscopic dissection. Dr. Shukla was able to dissect out what appeared to be our cystic duct, however, it was extremely short and the gallbladder appeared to insert almost directly onto the common bile duct. We attempted to dissect along the cystic plate, but this was densely inflamed, and we were unable to create this window. The decision was made to convert to open to perform a safer dissection and to ensure that we were seeing the appropriate structures. The abdomen was allowed to desufflate and the trocars were removed. A right upper quadrant oblique incision was made connecting the epigastric and subcostal incision sites. Using sharp dissection with a 10 blade and electrocautery, we dissected down through the layers of the abdominal wall. The peritoneum was elevated with hemostats and entered sharply. The peritoneum was then opened medially and laterally while protecting the underlying structures. Rolled laps and retractors were then placed in the abdomen, and we exposed our gallbladder. The gallbladder was grasped with clamps. We attempted to begin our dissection more proximally, but given her anatomy and the thickened tissue of the gallbladder, this was quite difficult. The decision was made to attempt a dome down approach instead to try and work our way toward the infundibulum and our critical view of structures. The gallbladder was densely adhered to the liver bed making our dissection quite difficult. Kittner's, cautery, and Metzenbaum scissors were used to meticulously create a plane between the liver and the gallbladder itself. It took about 1 hour of dissection to free up enough gallbladder to begin to get a plane that we could identify. Eventually, a Carbajal retractor was brought into the field to provide better retraction and to free up our hands and our data control assistant's hands to be able to expose more of the operative field. Eventually, we were able to begin dissection along the infundibulum. With further dissection, we were able to clearly see the cystic duct. Again, this was extremely short. A 2-0 Vicryl suture was used to ligate the cystic duct close to the common bile duct. 5 mm clips were then placed distally to this, and we then ligated the cystic duct as close to the gallbladder as we could. After this was completed, we continued our dissection along the cystic plate. We eventually got into the gallbladder and were able to then remove an impacted 3 cm stone in the proximal third of the gallbladder itself. This allowed us to better dissect along the proximal half of the cystic plate. While dissecting, we came across the cystic artery. This was doubly clipped and ligated. Using finger dissection and cautery, we were then able to take the gallbladder off the rest of the cystic plate. A small segment of the gallbladder wall was left in place. The gallbladder was then removed from the field and passed off to pathology. The retained gallbladder wall was then cauterized. We inspected our operative field and it appeared to be hemostatic. The abdomen was washed out with a normal saline-Ancef solution. We inspected the remainder of our operative field and no damage to surrounding structures was noted. A 19-[place] Arcenio drain was then brought in through the right lateral flank port and placed within the operative field. It was secured to the skin using a 2-0 silk suture. Surgicel and Avitene were then placed in the gallbladder fossa to provide hemostasis in the future. We then closed the peritoneal layer and posterior fascia with a running 0 Vicryl suture. The oblique muscles and anterior abdominal fascia were closed with interrupted 0 Ethibond sutures. An On-Q pump was placed over the top of the fascia. The subcutaneous fat layer was closed with layers of running 3-0 Vicryl suture. The skin was closed with elan. I then turned my attention to the supraumbilical port site. The fascia there was closed with interrupted 0 Vicryl sutures. The subcutaneous fat layer was closed with interrupted 3-0 Vicryl suture. The skin was closed with elan. Sterile dressings were applied. The patient tolerated the procedure well. Postoperatively, Doppler was performed, and the baby had good heart tones. The patient tolerated the procedure well with no immediate complications. All counts were complete and correct at the end of the case. LUCILA / LANDY /[id number] MTDD
== END 2020-01-27 16:30 | disposition home or self-care (01) | DRG 546 ==
LOC: MW.SDS 07:39 → MW.ICU 13:58 → MERGE 13:58 → MW.MS 01-26 17:55
PROVIDERS: ADMIT Surgery; ATTEND Surgery
PROC: 0FT40ZZ Resection of Gallbladder, Open Approach (ICD-10-PCS; principal; 2020-01-25)
PROC: 0FJ44ZZ Inspection of Gallbladder, Percutaneous Endoscopic Approach (ICD-10-PCS; 2020-01-25)
DX: O99.611 Diseases of the digestive system complicating pregnancy, first trimester (principal); K80.12 Calculus of gallbladder with acute and chronic cholecystitis without obstruction; O99.011 Anemia complicating pregnancy, first trimester; D56.9 Thalassemia, unspecified; O99.211 Obesity complicating pregnancy, first trimester; E66.01 Morbid (severe) obesity due to excess calories; O99.281 Endocrine, nutritional and metabolic diseases complicating pregnancy, first trimester; E28.2 Polycystic ovarian syndrome; O99.511 Diseases of the respiratory system complicating pregnancy, first trimester; J45.909 Unspecified asthma, uncomplicated; Z3A.09 9 weeks gestation of pregnancy; Z53.31 Laparoscopic surgical procedure converted to open procedure
CPT/HCPCS: 36415; 80053; 82962; 83605; 83735; 85025; 85027; 85610; 85730; 88300; 88304; A9270-GY; J0330; J0690; J0694; J1170; J2001; J2250; J2270; J2274; J2405; J2704; J3010; J3475; J3490; J7120